=== PATIENT | male | born 1940 | race Asian ===

== ENCOUNTER 2018-06-22 14:27 | Inpatient (IN) | payer OTHER ==
[~2018-06-22] VITALS: Ht 167.6 cm; Wt 60.8 kg
--- NOTE | 2018-06-22 14:33 | NUR ---
PT AMBULATES TO BED 8
[2018-06-22 14:35] VITALS: BP 110/78
--- NOTE | 2018-06-22 14:44 | NUR ---
Patient being evaluated by physician at bedside.
[2018-06-22] MEDS ORDERED: ASPIRIN 325 MG TAB PO ONE (14:45)
[2018-06-22] MEDS ORDERED: ASPIRIN 325 MG TAB ONE (15:05)
--- NOTE | 2018-06-22 15:09 | NUR ---
AAO KINYARWANDA SPEAKING PT BIB FAMILY WITH C/O DIZZINESS X 1 WK; DENIES N/V/D; BP 110/78 HX; DENIES RX; NONE
[2018-06-22 15:30] LABS: BASOPHILS % (AUTO) 0.9 % (0.0-2.0); EOSINOPHILS # (AUTO) 0.2 K/uL (0-0.4); EOSINOPHILS % (AUTO) 4.7 % (0.0-4.0); HEMATOCRIT 41.1 % (36-52); HEMOGLOBIN 13.7 g/dL (12.0-18.0); LYMPHOCYTES # (AUTO) 1.2 K/uL (2.0-11.5); LYMPHOCYTES % (AUTO) 32.9 % (20.5-51.1); MEAN CORPUSCULAR HEMOGLOBIN 33 pg (27-31); MEAN CORPUSCULAR HGB CONC 33 g/dL (33-37); MEAN CORPUSCULAR VOLUME 99.5 fL (80-94); MONOCYTES # (AUTO) 0.4 K/uL (0.8-1.0); MONOCYTES % (AUTO) 10.3 % (1.7-9.3); NEUTROPHILS # (AUTO) 1.9 K/uL (1.8-7.7); NEUTROPHILS % (AUTO) 51.2 % (42.2-75.2); PLATELET COUNT (AUTO) 96 K/uL (140-450); RED BLOOD CELL COUNT(AUTO) 4.13 MIL/uL (4.20-6.10); RED CELL DISTRIBUTION WIDTH 13.4 % (11.6-13.7); WHITE BLOOD COUNT (AUTO) 3.7 K/uL (4.8-10.8)
[2018-06-22 15:43] LABS: ANION GAP 6.9 (8-16); CARBON DIOXIDE 30.2 mmol/L (21-32); CHLORIDE 103 mmol/L (98-107); CREATININE 0.8 mg/dL (0.7-1.3); GLUCOSE 80 mg/dL (74-106); POTASSIUM 4.1 mmol/L (3.5-5.1); SODIUM SERUM 136 mmol/L (136-145); UREA NITROGEN, BLOOD 26 mg/dL (7-18)
[2018-06-22] MEDS ORDERED: NACL 0.9% 1,000 ML IV SCH (15:45)
[2018-06-22 15:49] LABS: ASPARTATE AMINOTRANSFERASE 42 U/L (15-37); TOTAL BILIRUBIN 0.4 mg/dL (0.0-1.0)
[2018-06-22 15:53] LABS: PROTHROMBIN TIME 10.7 secs (10.8-13.4)
[2018-06-22] MEDS ORDERED: VITD1000 PO ×2 (15:55→16:01)
[2018-06-22] MEDS ORDERED: NAPR-54 PO (15:56)
[2018-06-22] MEDS ORDERED: GABA300C PO (15:57)
[2018-06-22] MEDS ORDERED: OMEP20TC12 PO (15:58)
[2018-06-22] MEDS ORDERED: ATROPINE 0.5 MG/5 ML SYR IVP ONE (16:05)
[2018-06-22] MEDS ORDERED: ATROPINE 1 MG/10 ML SYR IVP ONE (16:27)
--- NOTE | 2018-06-22 16:32 | NUR ---
1625 HR 44 BP 121/58 START ATROPINE PUSH END 1629 HR 63 BP 144/74
[2018-06-22] MEDS ORDERED: ACETAMINOPHEN 325 MG TAB PO PRN (16:50)
--- NOTE | 2018-06-22 17:13 | NUR ---
PT TAKEN TO THE FLOOR BY RED PLUMMER AND CHITRA RICHEY
--- NOTE | 2018-06-22 17:20 | NUR ---
PATIENT ADMITTED FROM ER. PATIENT AWAKE, ALERT, ORIENTED AND AMBULATORY. PATIENT ON ROOM AIR. NO S/S OF DISTRESS. DENIES PAIN AT THIS TIME. PATIENT IS LATVIAN SPEAKING ONLY. GRAND DAUGHTER AT BEDSIDE PROVIDED HX. PATIENT PLACED ON TELE MONITORING. BED LOWERED WITH CALL LIGHT WITHIN REACH. WILL CONTINUE TO MONITOR
--- NOTE | 2018-06-22 17:25 | NUR ---
Patient will be admitted to care of . Admited to TELE. Will go to room 108B. Belongings list completed. Report to KYLAH MOON.
[2018-06-22 17:36] VITALS: BP 146/61
[2018-06-22] MEDS ORDERED: INFLUENZA VIRUS VACCINE QUAD 0.5 ML SYR IMVAC PRN (17:40)
[2018-06-22] MEDS ORDERED: PNEUMOCOCCAL VACCINE 23 MCG/0.5 ML VIAL IMVAC SCH (17:40)
--- NOTE | 2018-06-22 17:51 | NUR ---
PATIENT EATING DINNER. NO S/S OF DISTRESS NOTED
--- NOTE | 2018-06-22 18:30 | NUR ---
PATIENT BACK IN THE UNIT. PATIENT ASLEEP BUT AROUSABLE. BP 135/62 HR 84 O2 SAT 99% ON ROOM AIR. 3-WAY ARMANDO CATHETER IN PLACE. CLEAR DRAINAGE NOTED IN THE ARMANDO BAG. BLOOD TRANSFUSION STILL IN PROGRESS. BED LOWERED WITH CALL LIGHT WITHIN REACH. WILL CONTINUE TO MONITOR Addendum: 06/22/18 at 1857 by Tim Jackson RN WRONG PATIENT
--- NOTE | 2018-06-22 18:30 | NUR ---
SPOKE TO THE DR KRISHNAMURTHY AND NOTIFIED HER ABOUT PATIENT'S HR OF 47. PATIENT DENIES ANY DISCOMFORT. PER ADMINISTER ONE MORE DOSE OF 0.5MG ATROPINE IVP AND CONSULT DR HUTCHINS
--- NOTE | 2018-06-22 18:45 | NUR ---
SPOKE WITH DR HUTCHINS AND NOTIFIED HER ABOUT PATIENT'S HEART RATE. PER MECCA SERRATO TO ADMINISTER ATROPINE
[2018-06-22] MEDS ORDERED: ATROPINE 1 MG/10 ML SYR IVP SCH (19:00)
[2018-06-22] MEDS: DEXT 5% / NACL 0.9% 500 ML IV SCH (19:07)
--- NOTE | 2018-06-22 19:20 | NUR ---
RECEIVED REPORT FROM DAY SHIFT NURSE. PT LAYING IN BED NO SIGNS OF DISTRESS NOTED. IV ON LEFT HAND IS DRY INTACT AND PATENT INFUSING D5NS AT 75ML/HR. ALL SAFETY MEASURES IN PLACE. PT A&O X 4. CALL LIGHT WITHIN REACH. SKIN IS INTACT. BED ON LOWEST POSITION. CALL LIGHT WITHIN REACH WILL CONTINUE TO MONITOR.
--- NOTE | 2018-06-22 19:55 | NUR ---
PATIENT REPORT GIVEN AT BEDSIDE. PATIENT ENDORSED IN STABLE CONDITION
[2018-06-22 19:57] VITALS: BP 127/70
[2018-06-22] MEDS: GABAPENTIN 300 MG CAP PO SCH (20:10)
--- NOTE | 2018-06-22 20:10 | NUR ---
DUE MEDICATION GIVEN. PT TOLERATED WELL. NO SIGNS OR SYMPTOMS OD DISTRESS. ALL SAFETY MEASURES IN PLACE WILL CONTINUE TO MONITOR. BED ALARM ON AND ON LOWEST POSITION.
--- NOTE | 2018-06-22 23:53 | NUR ---
PTS HEART RATE IN HIGH 30S WHEN SLEEPING. IS EASILY AROUSABLE NO COMPLAINS OF SOB OR CHEST PAIN. B/P 130/[address] KRISHNAMURTHY MADE AWARE ORDERED EKG STAT AND CARDIAC PANEL.
[2018-06-23] VITALS: BP 130/38
--- NOTE | 2018-06-23 | NUR ---
PTS SLEEPING IN BED BUT EASILY AROUSABLE. PT IN STABLE CONDITION HEART RATE IN THE 40S OTHER MO VITAL SIGNS WITHIN NORMAL LIMITS. PT DENIES CHEST PAIN OR SOB. WILL CONTINUE TO MONITOR.
[2018-06-23 00:42] LABS: CREATINE KINASE MB 1.2 ng/mL (0-3.6)
[2018-06-23] MEDS: DEXT 5% / NACL 0.9% 500 ML IV SCH (01:08)
--- NOTE | 2018-06-23 01:35 | NUR ---
PTS HEART RATE IN HIGH 30S WHILE ASLEEP. NO SIGNS OR SYMPTOMS OF DISTRESS IS EASILY AROUSABLE. NO SOB. DR HUTCHINS NOTIFIED. NO FURTHER ORDERS AT THIS TIME. WILL CONTINUE TO MONITOR.
--- NOTE | 2018-06-23 03:10 | NUR ---
PT IN FALL PRECAUTION. I CONTINUE TO EDUCATE PT ON CALLING FOR ASSISTANCE TO RESTROOM. BED ON LOWEST POSITION AND BED ALARM ON. WILL CONTINUE TO MONITOR.
[2018-06-23 04:00] VITALS: BP 118/56
--- NOTE | 2018-06-23 04:20 | NUR ---
PT SLEEPING BUT EASILY AROUSABLE. NO SIGNS OF DISTRESS NOTED AT THIS TIME. PT DENIES SOB. ALL SAFETY MEASURES IN PLACE. BED ALARM ON AND ON LOWEST POSITION. WILL CONTINUE TO MONITOR
--- NOTE | 2018-06-23 07:15 | NUR ---
RECEIVED PATIENT REPORT IN BED. PATIENT IS AWAKE AND ORIENTED. NO S/S OF DISTRESS. PATIENT ON TELE MONITORING. BED LOWERED WITH CALL LIGHT WITHIN REACH. WILL CONTINUE TO MONITOR
--- NOTE | 2018-06-23 07:20 | NUR ---
ENDORSED PT TO DAY SHIFT NURSE. PT IN STABLE CONDITION. ALL SAFETY MEASURES IN PLACE.
[2018-06-23 07:27] LABS: BASOPHILS % (AUTO) 0.7 % (0.0-2.0); EOSINOPHILS # (AUTO) 0.2 K/uL (0-0.4); EOSINOPHILS % (AUTO) 5.2 % (0.0-4.0); HEMATOCRIT 39.7 % (36-52); HEMOGLOBIN 13.4 g/dL (12.0-18.0); LYMPHOCYTES # (AUTO) 1.2 K/uL (2.0-11.5); LYMPHOCYTES % (AUTO) 31.9 % (20.5-51.1); MEAN CORPUSCULAR HEMOGLOBIN 34 pg (27-31); MEAN CORPUSCULAR HGB CONC 34 g/dL (33-37); MEAN CORPUSCULAR VOLUME 99.1 fL (80-94); MONOCYTES # (AUTO) 0.3 K/uL (0.8-1.0); MONOCYTES % (AUTO) 8.9 % (1.7-9.3); NEUTROPHILS % (AUTO) 53.3 % (42.2-75.2); PLATELET COUNT (AUTO) 95 K/uL (140-450); RED BLOOD CELL COUNT(AUTO) 4.01 MIL/uL (4.20-6.10); RED CELL DISTRIBUTION WIDTH 13.5 % (11.6-13.7); WHITE BLOOD COUNT (AUTO) 3.8 K/uL (4.8-10.8)
[2018-06-23 07:34] LABS: ALBUMIN 2.8 g/dL (3.4-5.0); ANION GAP 8.2 (8-16); ASPARTATE AMINOTRANSFERASE 42 U/L (15-37); CARBON DIOXIDE 28.8 mmol/L (21-32); CHLORIDE 106 mmol/L (98-107); CREATININE 0.8 mg/dL (0.7-1.3); GLUCOSE 82 mg/dL (74-106); SODIUM SERUM 139 mmol/L (136-145); TOTAL BILIRUBIN 0.6 mg/dL (0.0-1.0); UREA NITROGEN, BLOOD 17 mg/dL (7-18)
[2018-06-23 07:45] VITALS: BP 110/56
--- NOTE | 2018-06-23 08:30 | NUR ---
PATIENT SEEN AND EVALUATED BY DR HIRSCH
[2018-06-23] MEDS: DEXT 5% /NACL 0.9% 1,000 ML IV SCH ×2 (08:44→20:20)
[2018-06-23] MEDS: ASPIRIN 81 MG TAB.CHEW PO SCH (08:49)
[2018-06-23] MEDS: GABAPENTIN 300 MG CAP PO SCH ×2 (08:49→20:15)
[2018-06-23] MEDS: ENOXAPARIN 40 MG/0.4 ML SYR SUBQ SCH (08:51)
[2018-06-23 12:00] VITALS: BP 122/55
--- NOTE | 2018-06-23 14:15 | NUR ---
PATIENT SEEN AND EVALUATED BY DR HUTCHINS
[2018-06-23 17:17] VITALS: BP 125/50
--- NOTE | 2018-06-23 18:34 | NUR ---
PATIENT EATING DINNER. NO S/S OF DISTRESS. FAMILY MEMBERS PRESENT AT BEDSIDE
--- NOTE | 2018-06-23 19:29 | NUR ---
PATIENT REPORT GIVEN AT BEDSIDE. PATIENT ENDORSED IN STABLE CONDITION
--- NOTE | 2018-06-23 19:30 | NUR ---
RECEIVED BEDSIDE REPORT. PT IS EATING IN BED WITH FAMILY AT BEDSIDE. PT ON ROOM AIR WITHOUT SIGNS OF SOB. IV ON LEFT FOREARM INFUSING D5NS AT 75ML/HR. REVIEWED PLAN OF CARE WITH PT. ALL SAFETY MEASURES IN PLACE. FALL PRECAUTION IN PLACE. CALL LIGHT WITHIN REACH.
[2018-06-23 20:00] VITALS: BP 131/56
--- NOTE | 2018-06-23 20:15 | NUR ---
DUE MEDICATIONS GIVEN. PT TOLERATED WELL. NO SIGNS OF DISTRESS NOTED. SAFETY MEASURES IN PLACE. CALL LIGHT WITHIN REACH. WILL CONTINUE TO MONITOR.
[2018-06-24] VITALS: BP 113/47
--- NOTE | 2018-06-24 00:05 | NUR ---
PT CONTINUES TO BE BRADYCARDIA. NO SOB. OTHERWISE VITAL SIGNS ARE WITHIN NORMAL LIMITS. SAFETY MEASURES IN PLACE. CALL LIGHT WITHIN REACH. BED ALARM ON. WILL CONTINUE TO MONITOR.
--- NOTE | 2018-06-24 01:30 | NUR ---
PT SLEEPING. NO SIGNS OF DISTRESS NOTED. SAFETY MEASURES IN PLACE.
--- NOTE | 2018-06-24 03:15 | NUR ---
PT SLEEPING. NO SIGNS OF DISTRESS NOTED. SAFETY MEASURES IN PLACE.
[2018-06-24 04:00] VITALS: BP 129/46
--- NOTE | 2018-06-24 04:20 | NUR ---
PT CONTINUES TO BE BRADYCARDIA. NO SOB. DENIES ANY PAIN. OTHERWISE VITAL SIGNS WITHIN NORMAL LIMITS. BED ALARM ON AND ON LOWEST POSITION. WILL CONTINUE TO MONITOR
--- NOTE | 2018-06-24 07:15 | NUR ---
ENDORSED PT TO DAY SHIFT NURSE. PT IN STABLE CONDITION. SAFETY MEASURES IN PLACE.
--- NOTE | 2018-06-24 07:16 | NUR ---
RECEIVED REPORT FROM PM NURSE AT BEDSIDE. PT IS FILIPINO SPEAKING ONLY. PT IS FALL RISK WITH ADMITTING DX OF SYMPTOMATIC BRADYCARDIA. PT VS NOTED, HR 43 . SKIN IS INTACT. AOX4, IS ON FALL PRECAUTION. HAS LFT AC 20G, D5 NS IVF INFUSING AT 75ML/HR. IV SITE INTACT AND PATENT. PLACED CALL LIGHT WITHIN PT REACH. INFORMED TO USE CALL LIGHT FOR ANY HELP. BED ALARM ON, BED AT LOWER POSITION. NO SIGN OF DISTRESS NOTED THIS TIME . WILL CONTINUE TO MONITOR PT.
[2018-06-24 07:48] VITALS: BP 131/36
[2018-06-24 07:49] LABS: BASOPHILS % (AUTO) 0.7 % (0.0-2.0); EOSINOPHILS # (AUTO) 0.2 K/uL (0-0.4); HEMATOCRIT 38.2 % (36-52); HEMOGLOBIN 12.8 g/dL (12.0-18.0); LYMPHOCYTES # (AUTO) 1.4 K/uL (2.0-11.5); MEAN CORPUSCULAR HEMOGLOBIN 33 pg (27-31); MEAN CORPUSCULAR HGB CONC 34 g/dL (33-37); MEAN CORPUSCULAR VOLUME 99.1 fL (80-94); MONOCYTES # (AUTO) 0.4 K/uL (0.8-1.0); MONOCYTES % (AUTO) 9.6 % (1.7-9.3); NEUTROPHILS # (AUTO) 1.7 K/uL (1.8-7.7); NEUTROPHILS % (AUTO) 46.7 % (42.2-75.2); PLATELET COUNT (AUTO) 89 K/uL (140-450); RED BLOOD CELL COUNT(AUTO) 3.85 MIL/uL (4.20-6.10); RED CELL DISTRIBUTION WIDTH 13.2 % (11.6-13.7); WHITE BLOOD COUNT (AUTO) 3.7 K/uL (4.8-10.8)
[2018-06-24 08:34] LABS: CARBON DIOXIDE 29.8 mmol/L (21-32); CHLORIDE 107 mmol/L (98-107); CREATININE 0.7 mg/dL (0.7-1.3); GLUCOSE 85 mg/dL (74-106); POTASSIUM 3.8 mmol/L (3.5-5.1); SODIUM SERUM 138 mmol/L (136-145); UREA NITROGEN, BLOOD 19 mg/dL (7-18)
--- NOTE | 2018-06-24 08:38 | NUR ---
PATIENT HAS BEEN SCREENED AND CATEGORIZED MODERATE NUTRITION RISK. PATIENT WILL BE SEEN WITHIN 3-5 DAYS OF ADMISSION. 06/25/18 06/27/[address]
[2018-06-24] MEDS: ENOXAPARIN 40 MG/0.4 ML SYR SUBQ SCH (09:00)
[2018-06-24] MEDS: GABAPENTIN 300 MG CAP PO SCH (09:02)
[2018-06-24] MEDS: ASPIRIN 81 MG TAB.CHEW PO SCH (09:02)
--- NOTE | 2018-06-24 09:06 | NUR ---
ADMINISTERED MEDS TO PT . TOLERATED WELL. LEVONOX NOT ADMINISTERED PLATELET AT LOWER END ,[id number]. WILL CONTINUE TO MONITOR PT. [id number] PT ON USING CALL LIGHT. PLACED CALL LIGHT WITHINN PT REACH. PT LYING ON HIS BED. NO SIGN OF DISTRESS NOTED. WILL CONTINUE TO MONITOR PT.
[2018-06-24] MEDS: DEXT 5% /NACL 0.9% 1,000 ML IV SCH (09:14)
[2018-06-24] MEDS ORDERED: CHLORHEXADINE GLUC 2% CLOTH TP SCH (10:20)
[2018-06-24] MEDS ORDERED: MUPIROCIN 2% OINT 22 GM TUBE TP SCH (10:20)
--- NOTE | 2018-06-24 10:20 | NUR ---
CALLED DR. HIRSCH TO REPORT PT MRSA NARES CULTURE CAME POSITIVE . ORDERED TO START MRSA PROTOCOL. PT ON CONTACT ISOLATION. POSTED SIGN ON PT ROOM. FAMILY AT BEDSIDE. EDUCATED ABOUT MRSA CONTACT PROTOCOL. VERBALIZED UNDERSTANDING. SHOWED THEM GOWN . INFORMED THAT NEEDS TO WEAR GOWN WHILE VISITING PTS ROOM . NO SIGN OF DISTRESS NOTED WILL CONTINUE TO MONITOR PT.
--- NOTE | 2018-06-24 10:45 | NUR ---
SPOKE TO THE DAUGHTER KEYSHA REGARDING TRANSFER OF PATIENT TO [facility].
[2018-06-24] MEDS ORDERED: MUPIROCIN CA NASAL 2% 1GM TUBE NS SCH (11:00)
--- NOTE | 2018-06-24 11:00 | NUR ---
ADMISSION CHART REVIEW DONE. FAXED INITIAL REVIEW TO [facility] [phone] PHONE ELSA [phone] ALSO FAXED ORDER FOR TRANSFER TO [facility] FOR PACEMAKER. RECEIVED ORDER FOR PATIENT TO GO TO [facility] FOR PACEMAKER INSERTION. I CALLED KRISTEN AND [facility] IN BED CONTROL AND SHE SAID TO HAVE DR. CHAUDHARY CALL HER FOR A BED. I CALLED DR. HIRSCH AND AND HE SAID HE WOULD CALL BED CONTROL. I CALLED ELSA FROM [facility]. THE AUTH FOR TRANSPORT IS [id number]. THE AUTH FOR [facility] IS [id number]. I CALLED KRISTEN AND GAVE HER THE AUTH NUMBER. SHE SAID THE PATIENT CAN GO TO ROOM 351A UNDER DR. HIRSCH. THE PHONE FOR REPORT IS [phone]. I CALLED NOHELIA MOONBRAKE RIDER NURSE AND INFORMED HER. I CALLED YAMIL AND SPOKE WITH MARIELLA AND SET UP [facility] TRANSPORT FOR 12NOON. I INFORMED NOHELIA MOONBRAKE RIDER NURSE.
--- NOTE | 2018-06-24 12:15 | NUR ---
PT TRANSFERRED TO [facility] FRO HIGHER LEVEL OF CARE. PT WENT WITH [facility]. PT STABEL AT TIME OF DC. DC PACKET GIVEN WITH PT. FAMILY MEMBER AT BEDSIDE , INFORMED HER THAT PT WILL BE TRANSFERRED TO [facility] FOR HIGHER LEVEL OF CARE, REPORT GIVE TO GURU FROM [facility] . GAVE CALL BACK NUMBER IF HAS ANY QUESTION. PT WAS GIVEN FLU SHOT AND PNA VACCINE. PT WENT WITH [facility] VIA AMBULANCE. PT STABLE AT TIME OF DISCHARGE, WENT WITH IV ACCESS, NURSE MARISOL GARVEY AWARE. GAVE HER PTS GRANDDAUGHTER NUMBER , IF WANTED TO CONTACT FAMILY MEMBER.
== END 2018-06-24 12:15 | disposition short-term general hospital (02) | DRG 243 ==
LOC: MED 14:27 → MTU 16:52
PROVIDERS: ADMIT Internal Medicine; ATTEND Internal Medicine
DX: K21.9 Gastro-esophageal reflux disease without esophagitis (principal); R00.1 Bradycardia, unspecified; E44.1 Mild protein-calorie malnutrition; E78.5 Hyperlipidemia, unspecified; R07.89 Other chest pain; F41.9 Anxiety disorder, unspecified; K25.9 Gastric ulcer, unspecified as acute or chronic, without hemorrhage or perforation; N40.0 Benign prostatic hyperplasia without lower urinary tract symptoms; Z79.1 Long term (current) use of non-steroidal anti-inflammatories (NSAID); Z79.899 Other long term (current) drug therapy; Z87.891 Personal history of nicotine dependence; Z80.9 Family history of malignant neoplasm, unspecified; Z87.11 Personal history of peptic ulcer disease
CPT/HCPCS: 36415; 71045; 80048; 80053; 82550; 82553; 83735; 83880; 84443; 84484; 85025; 85610; 85730; 87081; 90658; 90732; 93005; 96361; 96374; 99285; J0461; J1650; J7042

== ENCOUNTER 2018-09-18 08:30 | Emergency (ER) | payer OTHER ==
[~2018-09-18] VITALS: Ht 165.1 cm; Wt 59.6 kg
[~2018-09-18 08:30] MED LIST: GABA300C PO; NAPR-54 PO; OMEP20TC12 PO; VITD1000 PO
[2018-09-18 08:39] VITALS: BP 119/79
[2018-09-18 09:34] LABS: EOSINOPHILS # (AUTO) 0.1 K/uL (0-0.4); EOSINOPHILS % (AUTO) 1.7 % (0.0-4.0); HEMATOCRIT 45.9 % (36-52); HEMOGLOBIN 14.9 g/dL (12.0-18.0); LYMPHOCYTES # (AUTO) 1.1 K/uL (2.0-11.5); LYMPHOCYTES % (AUTO) 25.2 % (20.5-51.1); MEAN CORPUSCULAR HEMOGLOBIN 32 pg (27-31); MEAN CORPUSCULAR HGB CONC 33 g/dL (33-37); MEAN CORPUSCULAR VOLUME 98.8 fL (80-94); MONOCYTES # (AUTO) 0.3 K/uL (0.8-1.0); MONOCYTES % (AUTO) 7.9 % (1.7-9.3); NEUTROPHILS # (AUTO) 2.8 K/uL (1.8-7.7); NEUTROPHILS % (AUTO) 64.2 % (42.2-75.2); PLATELET COUNT (AUTO) 123 K/uL (140-450); RED BLOOD CELL COUNT(AUTO) 4.64 MIL/uL (4.20-6.10); RED CELL DISTRIBUTION WIDTH 13.7 % (11.6-13.7); WHITE BLOOD COUNT (AUTO) 4.4 K/uL (4.8-10.8)
[2018-09-18 09:49] LABS: SODIUM SERUM 134 mmol/L (136-145)
[2018-09-18 09:50] LABS: CARBON DIOXIDE 27.2 mmol/L (21-32); CHLORIDE 97 mmol/L (98-107); CREATININE 0.9 mg/dL (0.7-1.3); GLUCOSE 100 mg/dL (74-106); POTASSIUM 4.2 mmol/L (3.5-5.1); UREA NITROGEN, BLOOD 22 mg/dL (7-18)
[2018-09-18 10:00] LABS: TOTAL BILIRUBIN 0.7 mg/dL (0.0-1.0)
[2018-09-18 10:01] LABS: ALBUMIN 3.2 g/dL (3.4-5.0); ASPARTATE AMINOTRANSFERASE 84 U/L (15-37)
[2018-09-18 10:16] LABS: APPEARANCE,URINE CLEAR (CLEAR)
[2018-09-18 10:17] LABS: BILIRUBIN,URINE 1+ (NEGATIVE); BLOOD, URINE TRACE (NEGATIVE); COLOR,URINE YELLOW (YELLOW); LEUKOCYTE ESTERASE ,URINE NEGATIVE (NEGATIVE); NITRITE, URINE NEGATIVE (NEGATIVE); PH,URINE 5.5 (5.0-9.0); UGLUCOSE NEGATIVE (NEGATIVE)
[2018-09-18 10:19] LABS: RBC,URINE 0-5 (RARE) /HPF (0-5); WBC,URINE 0-5 (RARE) /HPF (0-5)
[2018-09-18 10:50] VITALS: BP 123/73
== END 2018-09-18 10:50 | disposition home or self-care (01) ==
LOC: MED 08:30
DX: B34.9 Viral infection, unspecified (principal); Z79.899 Other long term (current) drug therapy
CPT/HCPCS: 36415; 71045; 80053; 81001; 85025; 87804; 99284; Q0092

== ENCOUNTER 2018-11-03 09:33 | Inpatient (IN) | payer OTHER ==
[~2018-11-03] VITALS: Ht 165.1 cm; Wt 62.1 kg
[2018-11-03 09:35] VITALS: BP 157/82
--- NOTE | 2018-11-03 09:43 | NUR ---
Patient ambulated with assistance to bed 5.
--- NOTE | 2018-11-03 10:07 | NUR ---
ASSUMED PATIENT CARE, NURSING ASSESSMENT COMPLETED. SEEN AND EVALUATED BY FRANCINE AMOS COMPLETED.
[2018-11-03] MEDS ORDERED: NACL 0.9% 1,000 ML IV SCH (10:27)
[2018-11-03] MEDS ORDERED: NACL 0.9% 1,000 ML IV ONE (10:27)
[2018-11-03] MEDS ORDERED: LACTULOSE 20 GM/30 ML UDC PO ONE (10:30)
[2018-11-03] MEDS ORDERED: METOCLOPRAMIDE 10 MG/2 ML INJ VIAL IVP ONE (10:30)
[2018-11-03] MEDS ORDERED: ONDANSETRON 4 MG/2 ML VIAL IVP ONE (10:30)
[2018-11-03 11:25] LABS: BASOPHILS % (AUTO) 0.6 % (0.0-2.0); EOSINOPHILS # (AUTO) 0.2 K/uL (0-0.4); EOSINOPHILS % (AUTO) 3.7 % (0.0-4.0); HEMATOCRIT 48.1 % (36-52); HEMOGLOBIN 15.5 g/dL (12.0-18.0); LYMPHOCYTES # (AUTO) 1.1 K/uL (2.0-11.5); LYMPHOCYTES % (AUTO) 23.6 % (20.5-51.1); MEAN CORPUSCULAR HEMOGLOBIN 32 pg (27-31); MEAN CORPUSCULAR HGB CONC 32 g/dL (33-37); MEAN CORPUSCULAR VOLUME 99.4 fL (80-94); MONOCYTES # (AUTO) 0.4 K/uL (0.8-1.0); NEUTROPHILS # (AUTO) 2.9 K/uL (1.8-7.7); NEUTROPHILS % (AUTO) 63.1 % (42.2-75.2); PLATELET COUNT (AUTO) 146 K/uL (140-450); RED BLOOD CELL COUNT(AUTO) 4.84 MIL/uL (4.20-6.10); RED CELL DISTRIBUTION WIDTH 15.7 % (11.6-13.7); WHITE BLOOD COUNT (AUTO) 4.5 K/uL (4.8-10.8)
[2018-11-03 11:47] LABS: ANION GAP 6.5 (8-16); CARBON DIOXIDE 29.5 mmol/L (21-32); CHLORIDE 100 mmol/L (98-107); CREATININE 0.8 mg/dL (0.7-1.3); GLUCOSE 67 mg/dL (74-106); SODIUM SERUM 132 mmol/L (136-145); UREA NITROGEN, BLOOD 20 mg/dL (7-18)
[2018-11-03 11:50] LABS: AMYLASE 82 U/L (25-115); ASPARTATE AMINOTRANSFERASE 95 U/L (15-37); LIPASE 160 U/L (73-393); TOTAL BILIRUBIN 1.2 mg/dL (0.0-1.0)
[2018-11-03] MEDS ORDERED: LEVOFLOXACIN 500 MG TAB PO ONE (13:05)
[2018-11-03 13:18] LABS: APPEARANCE,URINE CLEAR (CLEAR); BILIRUBIN,URINE NEGATIVE (NEGATIVE); BLOOD, URINE NEGATIVE (NEGATIVE); COLOR,URINE YELLOW (YELLOW); LEUKOCYTE ESTERASE ,URINE NEGATIVE (NEGATIVE); NITRITE, URINE NEGATIVE (NEGATIVE); UGLUCOSE NEGATIVE (NEGATIVE)
[2018-11-03] MEDS ORDERED: ONDANSETRON 4 MG/2 ML VIAL IVP PRN (14:30)
[2018-11-03] MEDS ORDERED: MORPHINE SULFATE 4 MG/ML SYR IVP PRN (14:30)
[2018-11-03] MEDS ORDERED: ACETAMINOPHEN 325 MG TAB PO PRN (14:30)
[2018-11-03 15:30] VITALS: BP 139/71
--- NOTE | 2018-11-03 15:30 | NUR ---
RECEIVED PT FROM RD NURSE. PT IS AWAKE AND ALERT, ABLE TO AMBULATE STEADILY, ON ROOM AIR, NO S/S OF ANY ACUTE DISTRESS. PT IS LAO SPEAKING ONLY, BUT HIS GRANDDAUGHTER IS PRESENT AT BEDSIDE, WHO IS AZERI SPEAKING AND ABLE TO TRANSLATE FOR THE PT. PT'S SKIN IS INTACT. PT HAS AN IV IN HIS R AC, 18 GAUGE, PATENT AND INTACT. CALL LIGHT GIVEN WITHIN REACH. WILL CONTINUE TO MONITOR.
--- NOTE | 2018-11-03 15:35 | NUR ---
DISPO AND MEDICAL DECISION MAKING INPATIENT ADMISSION FOR FURTHER MANAGEMENT AND CARE. PATIENT CARE REPORT GIVEN TO JACOB, CONTINUITY OF CARE ENDORSED. PATIENT AND FAMILY UPDATED ACCORDINGLY.
--- NOTE | 2018-11-03 16:40 | NUR ---
OBTAINED CONSENT FROM PT FOR ABD CT WITH CONTRAST. PT'S GRANDDAUGHTER WAS PRESENT AND WAS ABLE TO TRANSLATE FOR THE PATIENT.
--- NOTE | 2018-11-03 17:20 | NUR ---
PAGED DR HIRSCH REGARDING HIS SIGNATURE FOR PT'S CONSENT FOR ABD CT W/ CONSTRAST. DR HIRSCH SAID HE WILL SIGN IT TOMORROW WHEN HE COMES IN, AND TO DO THE CT SCAN TOMORROW.
--- NOTE | 2018-11-03 17:55 | NUR ---
PAGED WHETHER PT SHOULD BE GETTING ANY IV FLUIDS. DR CELIS WAS EVP MANAGING DIRECTOR, SAID TO ADMIN D5 1/2 NS 75 ML/HR, SINCE PT IS NPO FOR CT W/ CONTRAST TOMORROW.
[2018-11-03] MEDS: DEXT 5% / NACL 0.45% 1,000 ML IV SCH (18:48)
--- NOTE | 2018-11-03 19:20 | NUR ---
PT ENDORSED TO TROUBLE LOCATER IN STABLE CONDITION.
--- NOTE | 2018-11-03 19:22 | NUR ---
RECEIVED ENDORSEMENT FROM AM SHIFT RN. PT IS A/Ox4, ABLE TO VERBALIZE NEEDS. [place] SPEAKING ONLY, FAMILY AT BEDSIDE, GRANDDAUGHTER LEOPOLDO TO TRANSLATE BURKINAN TO CYMRO. INTRODUCED SELF, UPDATED PATIENT BOARD. ABLE TO AMBULATE STEADILY, ON ROOM AIR, NO S/S OF ANY ACUTE DISTRESS. PT'S SKIN IS INTACT. PT HAS AN IV IN HIS R AC, 18 GAUGE, PATENT AND INTACT. BED IN THE LOWEST POSITION, CALL LIGHT GIVEN WITHIN REACH. WILL CONTINUE TO MONITOR.
--- NOTE | 2018-11-03 19:30 | NUR ---
SEQUENTIAL DEVICE NOT ORDERED FOR THE PATIENT. PATIENT IS AMBULATORY.
[2018-11-03] MEDS: HYDROcodone/APAP 5/325 MG 1 TAB TAB PO PRN (19:50)
[2018-11-03 20:00] VITALS: BP 148/76
--- NOTE | 2018-11-03 22:05 | NUR ---
FREQUENT CHECKS MADE. NO SOB OR DISTRESS NOTED.
[2018-11-04] VITALS: BP 148/76
--- NOTE | 2018-11-04 00:56 | NUR ---
VITALS TAKEN. PATIENT ASLEEP, VISIBLE CHEST RISE AND FALL NOTED.
[2018-11-04] MEDS: HYDROcodone/APAP 5/325 MG 1 TAB TAB PO PRN ×3 (01:18→16:07)
--- NOTE | 2018-11-04 03:20 | NUR ---
ROUNDS DONE, VISIBLE CHEST RISE AND FALL NOTED.
--- NOTE | 2018-11-04 07:03 | NUR ---
RECEIVED PATIENT REPORT AT BEDSIDE. PATIENT IS AWAKE, ALERT AND ORIENTED. NO S/S OF DISTRESS AT THIS TIME. PATIENT IS NPO AT THIS TIME. BED LOWERED WITH CALL LIGHT WITHIN REACH. WILL CONTINUE TO MONITOR
--- NOTE | 2018-11-04 07:03 | NUR ---
ENDORSED PATIENT TO AM SHIFT RN. PATIENT IN STABLE CONDITION.
[2018-11-04] MEDS: DEXT 5% / NACL 0.45% 1,000 ML IV SCH ×2 (07:20→20:45)
[2018-11-04 07:51] LABS: BASOPHILS % (AUTO) 0.7 % (0.0-2.0); EOSINOPHILS # (AUTO) 0.1 K/uL (0-0.4); EOSINOPHILS % (AUTO) 3.3 % (0.0-4.0); HEMOGLOBIN 15.1 g/dL (12.0-18.0); LYMPHOCYTES # (AUTO) 1.1 K/uL (2.0-11.5); LYMPHOCYTES % (AUTO) 25.6 % (20.5-51.1); MEAN CORPUSCULAR HEMOGLOBIN 33 pg (27-31); MEAN CORPUSCULAR HGB CONC 33 g/dL (33-37); MEAN CORPUSCULAR VOLUME 99.4 fL (80-94); MONOCYTES # (AUTO) 0.5 K/uL (0.8-1.0); MONOCYTES % (AUTO) 10.5 % (1.7-9.3); NEUTROPHILS # (AUTO) 2.6 K/uL (1.8-7.7); NEUTROPHILS % (AUTO) 59.9 % (42.2-75.2); PLATELET COUNT (AUTO) 138 K/uL (140-450); RED BLOOD CELL COUNT(AUTO) 4.63 MIL/uL (4.20-6.10); RED CELL DISTRIBUTION WIDTH 15.5 % (11.6-13.7); WHITE BLOOD COUNT (AUTO) 4.4 K/uL (4.8-10.8)
[2018-11-04 08:00] VITALS: BP 134/74
[2018-11-04 08:15] LABS: ALBUMIN 2.9 g/dL (3.4-5.0); ANION GAP 4.8 (8-16); ASPARTATE AMINOTRANSFERASE 94 U/L (15-37); CARBON DIOXIDE 29.1 mmol/L (21-32); CHLORIDE 102 mmol/L (98-107); CREATININE 0.8 mg/dL (0.7-1.3); GLUCOSE 88 mg/dL (74-106); MAGNESIUM 1.7 mg/dL (1.8-2.4); POTASSIUM 3.9 mmol/L (3.5-5.1); SODIUM SERUM 132 mmol/L (136-145); TOTAL BILIRUBIN 1.4 mg/dL (0.0-1.0); UREA NITROGEN, BLOOD 20 mg/dL (7-18)
--- NOTE | 2018-11-04 08:30 | NUR ---
PATIENT HAS BEEN SCREENED AND CATEGORIZED MODERATE NUTRITION RISK. PATIENT WILL BE SEEN WITHIN 3-5 DAYS OF ADMISSION. 11/06/18[address]
--- NOTE | 2018-11-04 10:56 | NUR ---
PT MEDICATED FOR PAIN PRN. DAUGHTER AT BEDSIDE
[2018-11-04 16:05] VITALS: BP 128/70
--- NOTE | 2018-11-04 16:38 | NUR ---
PT EVALUATED BY DR HERNANDEZ
--- NOTE | 2018-11-04 19:09 | NUR ---
PT REPORT GIVEN AT BEDSIDE. PATIENT ENDORSED IN STABLE CONDITION
--- NOTE | 2018-11-04 19:10 | NUR ---
RECEIVED ENDORSEMENT FROM AM SHIFT RN. PT IS A/Ox4, ABLE TO VERBALIZE NEEDS. JAPANESE SPEAKING ONLY, FAMILY AT BEDSIDE, DAUGHTER AND SON ABLE TO TRANSLATE GERMAN TO JAPANESE. INTRODUCED SELF, UPDATED PATIENT BOARD. ABLE TO AMBULATE STEADILY, ON ROOM AIR, NO S/S OF ANY ACUTE DISTRESS. PT'S SKIN IS INTACT. PT HAS AN IV IN HIS R AC, 18 GAUGE, PATENT AND INTACT. BED IN THE LOWEST POSITION, CALL LIGHT GIVEN WITHIN REACH. WILL CONTINUE TO MONITOR.
--- NOTE | 2018-11-04 23:00 | NUR ---
PATIENT SWITCHED TO ROOM 114 DUE TO HX OF MRSA NARES.
--- NOTE | 2018-11-04 23:26 | NUR ---
PATIENT C/O 8/10 LEFT ABDOMINAL PAIN. ADMINISTERED MORPHINE ORDERED PER PAIN SCALE. WILL CONTINUE TO MONITOR.
[2018-11-05] VITALS: BP 134/68
--- NOTE | 2018-11-05 00:05 | NUR ---
VITALS TAKEN. NO SOB OR DISTRESS NOTED.
--- NOTE | 2018-11-05 02:10 | NUR ---
FREQUENT CHECKS MADE. NO SOB OR DISTRESS NOTED.
--- NOTE | 2018-11-05 05:20 | NUR ---
PATIENT ASLEEP, EYES CLOSED, VISIBLE CHEST RISE AND FALL NOTED.
--- NOTE | 2018-11-05 07:15 | NUR ---
ENDORSED PATIENT TO AM SHIFT RN. PATIENT STABLE.
--- NOTE | 2018-11-05 07:16 | NUR ---
RECEIVED BEDSIDE REPORT FROM NET SQL DEVELOPER NURSE. PATIENT IS AWAKE, ALERT AND ORIENTEDX4. PERSIAN SPEAKER. NO SIGNS OF DISTRESS ON RA. SKIN IS INTACT. PATIENT IS AMBULATORY. R AC 18G INFUSING D5 1/2NS AT 75. CLEAN, DRY AND INTACT. PATIENT IS CONTINENT. PATIENT IS NPO FOR LIVER BIOPSY TODAY. BED IN LOW POSITION. CALL LIGHT WITHIN REACH. WILL CONTINUE TO MONITOR THE PATIENT.
[2018-11-05 07:52] LABS: BASOPHILS % (AUTO) 0.5 % (0.0-2.0); EOSINOPHILS # (AUTO) 0.1 K/uL (0-0.4); EOSINOPHILS % (AUTO) 2.5 % (0.0-4.0); HEMATOCRIT 49.5 % (36-52); HEMOGLOBIN 15.9 g/dL (12.0-18.0); LYMPHOCYTES % (AUTO) 19.9 % (20.5-51.1); MEAN CORPUSCULAR HEMOGLOBIN 32 pg (27-31); MEAN CORPUSCULAR HGB CONC 32 g/dL (33-37); MEAN CORPUSCULAR VOLUME 100.2 fL (80-94); MONOCYTES # (AUTO) 0.5 K/uL (0.8-1.0); MONOCYTES % (AUTO) 9.5 % (1.7-9.3); NEUTROPHILS # (AUTO) 3.5 K/uL (1.8-7.7); NEUTROPHILS % (AUTO) 67.6 % (42.2-75.2); PLATELET COUNT (AUTO) 142 K/uL (140-450); RED BLOOD CELL COUNT(AUTO) 4.94 MIL/uL (4.20-6.10); RED CELL DISTRIBUTION WIDTH 15.3 % (11.6-13.7); WHITE BLOOD COUNT (AUTO) 5.2 K/uL (4.8-10.8)
[2018-11-05 08:00] VITALS: BP 129/70
--- NOTE | 2018-11-05 09:10 | NUR ---
USED [employer] TO GET LEATHER BELT LOOP CUTTER TO TRANSLATE FRENCH FOR LIVER BX CONSENT. PATIENT VERBALIZED UNDERSTANDING AND SIGNED CONSENT. DAVID, LEATHER BELT LOOP CUTTER #[id number]
[2018-11-05 09:16] LABS: ALBUMIN 3.3 g/dL (3.4-5.0); ANION GAP 8.6 (8-16); ASPARTATE AMINOTRANSFERASE 114 U/L (15-37); CARBON DIOXIDE 29.2 mmol/L (21-32); CHLORIDE 97 mmol/L (98-107); CREATININE 0.8 mg/dL (0.7-1.3); GLUCOSE 88 mg/dL (74-106); POTASSIUM 3.8 mmol/L (3.5-5.1); SODIUM SERUM 131 mmol/L (136-145); TOTAL BILIRUBIN 1.7 mg/dL (0.0-1.0); UREA NITROGEN, BLOOD 15 mg/dL (7-18)
[2018-11-05] MEDS ORDERED: LIDOCAINE 1% 500 MG/50 ML VIAL INJ SCH (10:48)
--- NOTE | 2018-11-05 11:00 | NUR ---
PATIENT LEFT TO CT TO GET LIVER BX DONE.
--- NOTE | 2018-11-05 11:30 | NUR ---
PATIENT BACK FROM CT SCAN AND LIVER BX. BANDAGE IS CLEAN, DRY AND INTACT. PATIENT EDUCATED TO LAY ON ABDOMEN FOR AN HOUR. IF TOLERATED
--- NOTE | 2018-11-05 12:45 | NUR ---
PATIENT IS HUNGRY WILL ORDER HIM FOOD. PATIENT WANTS TO BE TURNED BACK TO FACE FORWARD. PATIENT OK TO TURN BACK. DRESSING IS CLEAN, DRY AND INTACT
[2018-11-05 13:25] LABS: PROTHROMBIN TIME 11.3 secs (10.8-13.4)
--- NOTE | 2018-11-05 14:00 | NUR ---
PATIENT IN NO SIGNS OF DISTRESS. WILL CONTINUE TO MONITOR THE PATIENT
[2018-11-05 15:07] LABS: HEPATITIS B SURFACE ANTIBODY Non Reactive (.)
[2018-11-05] MEDS ORDERED: MAGNESIUM CITRATE 300 ML BTL PO SCH (15:30)
[2018-11-05] MEDS ORDERED: BOWEL EVACUANT DRINK 4,000 ML PDS PO SCH (15:30)
[2018-11-05 16:00] VITALS: BP 107/74
--- NOTE | 2018-11-05 16:00 | NUR ---
PATIENT SITTING IN BED. NO SIGNS OF DISTRESS. WILL CONTINUE TO MONITOR THE PATIENT
[2018-11-05] MEDS: SENNA 8.6 MG TAB PO SCH (17:09)
--- NOTE | 2018-11-05 17:13 | NUR ---
ADMINISTERED MEDS. PATIENT TOLERATING WELL. PATIENT VERBALIZED UNDERSTANDING FOR COLONOSCOPY PROCEDURE TOMORROW USING [employer]. BOILER ATTENDANT NAME SHONDA [phone] USING THE LANGUAGE ROMANIAN.
--- NOTE | 2018-11-05 19:05 | NUR ---
GAVE BEDSIDE REPORT TO FOURTH HAND NURSE. PATIENT ENDORSED IN STABLE CONDITION
--- NOTE | 2018-11-05 19:07 | NUR ---
RECEIVED ENDORSEMENT FROM AM SHIFT RN. PT IS A/Ox4, ABLE TO VERBALIZE NEEDS. [place] SPEAKING ONLY, GRAND DAUGHTER ABLE TO TRANSLATE DOMINICAN TO [place]. INTRODUCED SELF, UPDATED PATIENT BOARD. ABLE TO AMBULATE STEADILY, ON ROOM AIR, NO SOB OR DISTRESS NOTED. SKIN IS INTACT. PT HAS AN IV IN HIS R AC, 18 GAUGE, PATENT AND INTACT. BED IN THE LOWEST POSITION, CALL LIGHT GIVEN WITHIN REACH. WILL CONTINUE TO MONITOR.
--- NOTE | 2018-11-05 22:45 | NUR ---
CALLED DR. HOWARD ABOUT IVF SINCE PATIENT WILL BE NPO AFTER MIDNIGHT. LEFT A MESSAGE.
--- NOTE | 2018-11-05 22:53 | NUR ---
RECEIVED A CALL FROM DR. DIAZ REGARDING IVF FOR PATIENT; RESPONDED WITH ORDER OF NS 1000mL TO RUN AT 75mL/HR. Addendum: 11/06/18 at 0014 by Александр Rosales RN ORDER CARRIED OUT.
[2018-11-05] MEDS: NACL 0.9% 1,000 ML IV SCH (23:30)
[2018-11-05] MEDS: HYDROcodone/APAP 5/325 MG 1 TAB TAB PO PRN (23:33)
--- NOTE | 2018-11-05 23:33 | NUR ---
PATIENT VERBALIZED 6/10 ABD. PAIN, GRAND DAUGHTER AT BEDSIDE AND ABLE TO TRANSLATE. MEDICATED PER PAIN SCALE. WILL CONTINUE TO MONITOR.
[2018-11-06] VITALS: BP 141/78
--- NOTE | 2018-11-06 00:13 | NUR ---
ROUNDS DONE, VITALS TAKEN. CHECKED BM; YELLOW IN COLOR, CLEAR.
--- NOTE | 2018-11-06 03:44 | NUR ---
PATIENT ASLEEP, VISIBLE CHEST RISE AND FALL NOTED.
--- NOTE | 2018-11-06 07:12 | NUR ---
ENDORSED PATIENT TO AM SHIFT RN. PATIENT IN STABLE CONDITION.
--- NOTE | 2018-11-06 07:15 | NUR ---
RECEIVED BEDSIDE REPORT FROM PM SHIFT RN. PT IS A/Ox4. ABLE TO VERBALIZE NEEDS AND OBEY COMMANDS. SKIN INTACT. AMBULATORY WITHOUT ASSIST. NO C/O PAIN AT THIS TIME. PER PEDIATRIC NURSE RN, PATIENT HAS FINISHED BOWEL PREP AND STOOL IS CLEAR. WILL GO FOR COLONOSCOPY TODAY. ALL SAFETY PRECAUTIONS IN PLACE, WILL CONTINUE TO MONITOR.
[2018-11-06 07:33] LABS: BASOPHILS % (AUTO) 0.7 % (0.0-2.0); EOSINOPHILS # (AUTO) 0.1 K/uL (0-0.4); EOSINOPHILS % (AUTO) 2.1 % (0.0-4.0); HEMATOCRIT 47.9 % (36-52); HEMOGLOBIN 15.9 g/dL (12.0-18.0); LYMPHOCYTES # (AUTO) 0.9 K/uL (2.0-11.5); LYMPHOCYTES % (AUTO) 19.3 % (20.5-51.1); MEAN CORPUSCULAR HEMOGLOBIN 33 pg (27-31); MEAN CORPUSCULAR HGB CONC 33 g/dL (33-37); MEAN CORPUSCULAR VOLUME 98.7 fL (80-94); MONOCYTES # (AUTO) 0.5 K/uL (0.8-1.0); MONOCYTES % (AUTO) 10.1 % (1.7-9.3); NEUTROPHILS # (AUTO) 3.1 K/uL (1.8-7.7); NEUTROPHILS % (AUTO) 67.8 % (42.2-75.2); PLATELET COUNT (AUTO) 142 K/uL (140-450); RED BLOOD CELL COUNT(AUTO) 4.85 MIL/uL (4.20-6.10); RED CELL DISTRIBUTION WIDTH 15.3 % (11.6-13.7); WHITE BLOOD COUNT (AUTO) 4.6 K/uL (4.8-10.8)
[2018-11-06 08:00] VITALS: BP 118/60
[2018-11-06 08:38] LABS: ANION GAP 16.1 (8-16); ASPARTATE AMINOTRANSFERASE 102 U/L (15-37); CARBON DIOXIDE 22.2 mmol/L (21-32); CHLORIDE 100 mmol/L (98-107); CREATININE 0.7 mg/dL (0.7-1.3); GLUCOSE 74 mg/dL (74-106); POTASSIUM 4.3 mmol/L (3.5-5.1); SODIUM SERUM 134 mmol/L (136-145); TOTAL BILIRUBIN 1.7 mg/dL (0.0-1.0); UREA NITROGEN, BLOOD 16 mg/dL (7-18)
[2018-11-06] MEDS ORDERED: PANTOPRAZOLE 40 MG TABEC PO SCH (09:00)
[2018-11-06] MEDS: SENNA 8.6 MG TAB PO SCH ×2 (09:09→13:00)
[2018-11-06] MEDS ORDERED: fentaNYL 0.05 MG/ML VIAL ONE (10:47)
[2018-11-06] MEDS ORDERED: LIDOCAINE 2% 100 MG/5 ML UJET TP ONE (10:48)
[2018-11-06] MEDS ORDERED: MIDAZOLAM 2 MG/2 ML VIAL ONE ×2 (10:48)
--- NOTE | 2018-11-06 11:20 | NUR ---
PATIENT WENT FOR COLONOSCOPY.
--- NOTE | 2018-11-06 12:00 | NUR ---
RECEIVED PATIENT BACK FROM COLONOSCOPY. IN STABLE CONDITION. WILL CONTINUE TO MONITOR. Addendum: 11/06/18 at 1447 by Andria Felipe Meng, RN 94%RA, 95/55, MAP 74, HR 62, RR19. NO C/O PAIN OR DISCOMFORT.
[2018-11-06] MEDS: NACL 0.9% 1,000 ML IV SCH (12:30)
[2018-11-06] MEDS ORDERED: ACET-9525 PO (13:35)
[2018-11-06] MEDS ORDERED: SENN-74 PO (13:35)
--- NOTE | 2018-11-06 14:00 | NUR ---
DISCHARGE PAPERWORK, INCLUDING INSTRUCTIONS TO F/U WITH PCP WITHIN ONE WEEK AND CONTACT INFO FOR DR. HIRSCH FOR BIOPSY RESULTS, GIVEN TO PATIENT. PATIENT IS DIVEHI SPEAKING BUT PREFERS FAMILY MEMBER AT BEDSIDE TO TRANSLATE. NEW PRESCRIPTION/MEDICATION TEACHING AND MEDICATION RECONCILIATION TEACHING GIVEN TO PATIENT. PT AND FAMILY MEMBER VERBALIZED COMPLETE UNDERSTANDING. IV SITE REMOVED WITH MINIMAL BLOOD LOSS AND LUMEN COMPLETELY INTACT. ID BANDS REMOVED. FLU VACCINE AND PNEUMOVAX UP TO DATE. ALL PERSONAL BELONGINGS ARE WITH PATIENT. PATIENT DISCHARGED VIA WHEELCHAIR AND WILL GO HOME WITH FAMILY MEMBER VIA PRIVATE VEHICLE. Addendum: 11/06/18 at 1446 by Andria Felipe Meng, RN PATIENT IN STABLE CONDITION.
[2018-11-06] MEDS ORDERED: MIDAZOLAM 2 MG/2 ML VIAL IVP ONE (14:05)
[2018-11-06] MEDS ORDERED: fentaNYL 0.05 MG/ML VIAL IVP ONE (14:05)
--- NOTE | 2018-11-06 15:19 | NUR ---
LATE ENTRY FOR 1300 CM NOTE PER NAVDEEP OF [facility] (PCP) PH# [phone], THE PATIENT IS SCHEDULED FOR OUTPATIENT FOLLOW UP WITH DR. [facility] ON NOVEMBER 12, 2018 1:45 PM AT THE CLINIC AT [address] [place] [address]. I GAVE THE PATIENT AND PATIENT'S GRAND DAUGHTER, KEYSHA MURRY WHO WAS BEDSIDE, THE PATIENT'S OUTPATIENT FOLLOW UP SCHEDULE.
== END 2018-11-06 14:40 | disposition home or self-care (01) | DRG 254 ==
LOC: MED 09:33 → MTU 14:35
PROVIDERS: ADMIT Internal Medicine; ATTEND Internal Medicine
PROC: 0DBF8ZZ Excision of Right Large Intestine, Via Natural or Artificial Opening Endoscopic (ICD-10-PCS; principal; 2018-11-06 11:00)
DX: D49.0 Neoplasm of unspecified behavior of digestive system (principal); J18.9 Pneumonia, unspecified organism; E44.0 Moderate protein-calorie malnutrition; K76.6 Portal hypertension; E83.42 Hypomagnesemia; E87.1 Hypo-osmolality and hyponatremia; K74.60 Unspecified cirrhosis of liver; K57.30 Diverticulosis of large intestine without perforation or abscess without bleeding; K64.8 Other hemorrhoids; I10 Essential (primary) hypertension; N40.0 Benign prostatic hyperplasia without lower urinary tract symptoms; K21.9 Gastro-esophageal reflux disease without esophagitis; E16.2 Hypoglycemia, unspecified; Z87.11 Personal history of peptic ulcer disease; Z86.19 Personal history of other infectious and parasitic diseases; Z68.22 Body mass index [BMI] 22.0-22.9, adult; Z95.0 Presence of cardiac pacemaker; Z79.899 Other long term (current) drug therapy
CPT/HCPCS: 36415; 47000; 71045; 74160; 80053; 81003; 82105; 82140; 82150; 82378; 83605; 83690; 83735; 84484; 85025; 85610; 85730; 86301; 86704; 86706; 87040; 87081; 87086; 87340; 88307; 88313; 93005; 96361; 96374; 96375; 99285; J2001; J2250; J2270; J2405; J2765; J3010; J7030; Q0092; Q9967

== ENCOUNTER 2018-12-23 10:48 | Emergency (ER) | payer OTHER ==
[~2018-12-23] VITALS: Ht 167.6 cm; Wt 57.6 kg
[~2018-12-23 10:48] MED LIST changes: +ACET-9525 PO; -NAPR-54 PO; +SENN-74 PO
[2018-12-23 11:14] VITALS: BP 126/80
--- NOTE | 2018-12-23 11:21 | NUR ---
PT TO ER BED 6
--- NOTE | 2018-12-23 11:34 | NUR ---
PT BIB GRANDDAUGHTER TO THE ED WITH THE CHIEF C/O ABDOMINAL BLOATING FOR 10 DAYS. REPORTS DIARRHEA SINCE YESTERDAY X3. DIARRHEA X1 TODAY. NO BLOOD IN DIARRHEA. DENIES NAUSEA, VOMITING, FEVER. DENIES ABDOMINAL PAIN. HX OF HEPATITIS, PROSTATE AND BRADYCARDIA. PT ON PACE CHANG PER GRAND DAUGHTER.
--- NOTE | 2018-12-23 11:36 | NUR ---
PT BEING EVALUATED BY ER AT THIS TIME.
[2018-12-23] MEDS ORDERED: NACL 0.9% 500 ML IV SCH (11:47)
[2018-12-23] MEDS ORDERED: MORPHINE SULFATE 2 MG/ML SYR IVP ONE (11:50)
[2018-12-23 13:30] LABS: BASOPHILS % (AUTO) 0.7 % (0.0-2.0); EOSINOPHILS % (AUTO) 0.6 % (0.0-4.0); HEMATOCRIT 45.4 % (36-52); HEMOGLOBIN 15.1 g/dL (12.0-18.0); LYMPHOCYTES # (AUTO) 0.8 K/uL (2.0-11.5); LYMPHOCYTES % (AUTO) 21.2 % (20.5-51.1); MEAN CORPUSCULAR HEMOGLOBIN 32 pg (27-31); MEAN CORPUSCULAR HGB CONC 33 g/dL (33-37); MEAN CORPUSCULAR VOLUME 95.3 fL (80-94); MONOCYTES # (AUTO) 0.2 K/uL (0.8-1.0); MONOCYTES % (AUTO) 6.3 % (1.7-9.3); NEUTROPHILS # (AUTO) 2.6 K/uL (1.8-7.7); NEUTROPHILS % (AUTO) 71.2 % (42.2-75.2); PLATELET COUNT (AUTO) 162 K/uL (140-450); RED BLOOD CELL COUNT(AUTO) 4.77 MIL/uL (4.20-6.10); RED CELL DISTRIBUTION WIDTH 15.6 % (11.6-13.7); WHITE BLOOD COUNT (AUTO) 3.7 K/uL (4.8-10.8)
[2018-12-23 13:44] LABS: ALBUMIN 2.7 g/dL (3.4-5.0); ANION GAP 10.2 (8-16); ASPARTATE AMINOTRANSFERASE 158 U/L (15-37); CARBON DIOXIDE 26.5 mmol/L (21-32); CHLORIDE 100 mmol/L (98-107); CREATININE 0.7 mg/dL (0.7-1.3); GLUCOSE 116 mg/dL (74-106); POTASSIUM 3.7 mmol/L (3.5-5.1); SODIUM SERUM 133 mmol/L (136-145); TOTAL BILIRUBIN 1.1 mg/dL (0.0-1.0); UREA NITROGEN, BLOOD 20 mg/dL (7-18)
[2018-12-23 13:51] LABS: PROTHROMBIN TIME 12.4 secs (10.8-13.4)
--- NOTE | 2018-12-23 14:20 | NUR ---
PT UNABLE TO GIVE URINE AT THIS TIME. ER MD AWARE. NO UA PER DOCTOR.
[2018-12-23] MEDS ORDERED: LIDOCAINE VISCOUS 2% 20 ML UDC PO ONE (14:30)
[2018-12-23] MEDS ORDERED: DICYCLOMINE HCL LIQUID 10 MG/5 ML UDC PO ONE (14:30)
[2018-12-23] MEDS ORDERED: ALUMINUM HYD/MAG/SIMETHICONE 30 ML UDC PO ONE (14:30)
[2018-12-23] MEDS ORDERED: PANTOPRAZOLE 40 MG INJ VIAL IVP ONE (14:30)
--- NOTE | 2018-12-23 14:44 | NUR ---
Patient discharged with v/s stable. Written and verbal after care instructions given and explained. Patient alert, oriented and verbalized understanding of instructions. Ambulatory with steady gait. All questions addressed prior to discharge. ID band removed. Patient advised to follow up with PMD. Rx of MOTRIN AND TRAMADOL given. Patient educated on indication of medication including possible reaction and side effects. Opportunity to ask questions provided and answered.
[2018-12-23 14:45] VITALS: BP 119/72
== END 2018-12-23 14:44 | disposition home or self-care (01) ==
LOC: MED 10:48
DX: K29.70 Gastritis, unspecified, without bleeding (principal); K21.9 Gastro-esophageal reflux disease without esophagitis; N40.0 Benign prostatic hyperplasia without lower urinary tract symptoms; Z95.0 Presence of cardiac pacemaker; Z79.891 Long term (current) use of opiate analgesic; Z79.899 Other long term (current) drug therapy
CPT/HCPCS: 71045; 74176; 80053; 82140; 83605; 83880; 84484; 85025; 85610; 85730; 87040; 93005; 96361; 96374; 99284; J2270; J7030; Q0092

== ENCOUNTER 2019-01-20 18:28 | Inpatient (IN) | payer OTHER ==
[~2019-01-20] VITALS: Ht 162.6 cm; Wt 54.4 kg
[2019-01-20 18:44] VITALS: BP 142/77
--- NOTE | 2019-01-20 18:45 | NUR ---
Patient to bed 3. RN evaluating patient at bedside.
--- NOTE | 2019-01-20 18:50 | NUR ---
c/o epigastric pain x 10 days. decreased appetite.ABDOMEN : SOFT. hx: hyperlipidemia PATIENT STATES STABBING PAIN OF 8/10 AT THIS TIME; PATIENT POSITIONED FOR COMFORT; HOB ELEVATED; BEDRAILS UP X1; BED DOWN. ER MD MADE AWARE OF PT STATUS.
--- NOTE | 2019-01-20 19:18 | NUR ---
Pt report given to SAVANAH MOON. Transfer of care at this time.
--- NOTE | 2019-01-20 19:21 | NUR ---
report recieved from RED Wood. Transfer of care at this time.
[2019-01-20 19:25] LABS: BASOPHILS % (AUTO) 0.9 % (0.0-2.0); EOSINOPHILS % (AUTO) 1.2 % (0.0-4.0); HEMATOCRIT 48.7 % (36-52); HEMOGLOBIN 16.1 g/dL (12.0-18.0); LYMPHOCYTES # (AUTO) 1.1 K/uL (2.0-11.5); LYMPHOCYTES % (AUTO) 31.6 % (20.5-51.1); MEAN CORPUSCULAR HEMOGLOBIN 31 pg (27-31); MEAN CORPUSCULAR HGB CONC 33 g/dL (33-37); MEAN CORPUSCULAR VOLUME 92.4 fL (80-94); MONOCYTES # (AUTO) 0.3 K/uL (0.8-1.0); MONOCYTES % (AUTO) 7.9 % (1.7-9.3); NEUTROPHILS # (AUTO) 2.1 K/uL (1.8-7.7); NEUTROPHILS % (AUTO) 58.4 % (42.2-75.2); PLATELET COUNT (AUTO) 230 K/uL (140-450); RED BLOOD CELL COUNT(AUTO) 5.28 MIL/uL (4.20-6.10); WHITE BLOOD COUNT (AUTO) 3.6 K/uL (4.8-10.8)
[2019-01-20 19:26] LABS: APPEARANCE,URINE CLEAR (CLEAR); BILIRUBIN,URINE 1+ (NEGATIVE); BLOOD, URINE TRACE-I (NEGATIVE); COLOR,URINE YELLOW (YELLOW); LEUKOCYTE ESTERASE ,URINE NEGATIVE (NEGATIVE); NITRITE, URINE NEGATIVE (NEGATIVE); UGLUCOSE NEGATIVE (NEGATIVE)
--- NOTE | 2019-01-20 19:30 | NUR ---
UTILIZING DRAWING FRAME TENDER PHONE FOR PT TRANSLATION. DR. JACINTO EVALUATING PATIENT.
[2019-01-20 19:36] LABS: ANION GAP 10.4 (8-16); CARBON DIOXIDE 28.4 mmol/L (21-32); CHLORIDE 100 mmol/L (98-107); CREATININE 0.8 mg/dL (0.7-1.3); GLUCOSE 128 mg/dL (74-106); POTASSIUM 3.8 mmol/L (3.5-5.1); SODIUM SERUM 135 mmol/L (136-145); UREA NITROGEN, BLOOD 15 mg/dL (7-18)
[2019-01-20 19:41] LABS: ALBUMIN 2.9 g/dL (3.4-5.0); ASPARTATE AMINOTRANSFERASE 254 U/L (15-37); LIPASE 183 U/L (73-393); TOTAL BILIRUBIN 1.2 mg/dL (0.0-1.0)
--- NOTE | 2019-01-20 19:42 | NUR ---
Dr. Finley evaluating patient at bedside.
[2019-01-20] MEDS ORDERED: LORA-476 PO (19:54)
[2019-01-20] MEDS ORDERED: TAMS0.4C96 PO (19:54)
[2019-01-20] MEDS ORDERED: DONE10TA10 PO (19:54)
[2019-01-20] MEDS ORDERED: DOCU-299 PO (19:54)
[2019-01-20] MEDS ORDERED: RANI150T8 PO (19:54)
[2019-01-20] MEDS ORDERED: NAPR-54 PO (19:54)
[2019-01-20] MEDS ORDERED: MECL-272 PO (19:54)
[2019-01-20] MEDS ORDERED: SIMV10TA1 PO (19:54)
[2019-01-20] MEDS ORDERED: TRAZ-343 PO (19:54)
[2019-01-20] MEDS ORDERED: ASPI-1718 PO (19:54)
[2019-01-20] MEDS ORDERED: KETOROLAC 30 MG/ML VIAL IVP ONE (19:55)
--- NOTE | 2019-01-20 20:10 | NUR ---
PT TAKEN TO CT.
--- NOTE | 2019-01-20 20:15 | NUR ---
PT RETURN FROM CT
--- NOTE | 2019-01-20 20:55 | NUR ---
Pt seen with eyes closed. visble chest rise and fall. VSS. bed in lowest position. bedrail x2 up. family at bedside. will continue to monitor.
[2019-01-20] MEDS ORDERED: LORazepam 2 MG/ML VIAL IVP PRN (21:55)
[2019-01-20] MEDS ORDERED: ALBUTEROL 0.083% 2.5 MG/3 ML NEBU INH PRN (21:55)
[2019-01-20] MEDS ORDERED: ACETAMINOPHEN 325 MG TAB PO PRN (21:55)
[2019-01-20] MEDS ORDERED: ONDANSETRON 4 MG/2 ML VIAL IVP PRN (21:55)
--- NOTE | 2019-01-20 22:40 | NUR ---
Patient will be admitted to care of Dr. Roa. Admited to [facility]. Will go to room 106B. Belongings list completed. VSS at time of transport. Report to RED See. Transfer of care at this time.
--- NOTE | 2019-01-20 22:40 | NUR ---
RECEIVED PATIENT FROM ER. RECEIVED REPORT FROM RED PAVON AT BEDSIDE. PATIENT ALERT AND ORIENTED, IN STABLE CONDITION ON RA AND AMBULATORY, FAMILY AT BEDSIDE. ORIENTED PATIENT TO ROOM AND UNIT, SAFETY PRECAUTIONS IN PLACE, CALL LIGHT IN REACH.
[2019-01-20] MEDS ORDERED: cefTRIAXone 1,000 MG VIAL ONE (23:11)
--- NOTE | 2019-01-20 23:40 | NUR ---
IV IS LEAKING. WILL DC AND START A NEW IV ACCESS IN ANOTHER LOCATION.
[2019-01-21] VITALS: BP 150/74
--- NOTE | 2019-01-21 01:20 | NUR ---
DISCONTINUED 22G FROM LEFT HAND, TIP INTACT. INSERTED NEW 22G IV IN LEFT FOREARM, 1 TRY, FLUSHING WELL NO C/O PAIN. STARTED IV ROCEPHIN
--- NOTE | 2019-01-21 01:50 | NUR ---
ROCEPHIN FINISHED INFUSING. DISCONNECTED TUBING. PATIENT IS SALINE LOCKED. PATIENT STATES HIS ABD PAIN IS A 2/10 AND DOES NOT WANT ANY MEDICATION AT THIS TIME. NO SIGNS OF DISTRESS ON RA. SAFETY PRECAUTIONS IN PLACE.
--- NOTE | 2019-01-21 02:39 | NUR ---
PATIENT SLEEPING. NO SIGNS OF DISTRESS ON RA. SAFETY PRECAUTIONS IN PLACE. WILL CONTINUE TO MONITOR.
--- NOTE | 2019-01-21 05:30 | NUR ---
PATIENT SLEEPING NO SIGNS OF DISTRESS ON RA.
[2019-01-21 06:12] LABS: BASOPHILS # (AUTO) 0.1 K/uL (0.00-0.22); BASOPHILS % (AUTO) 1.8 % (0.0-2.0); EOSINOPHILS # (AUTO) 0.1 K/uL (0-0.4); EOSINOPHILS % (AUTO) 2.7 % (0.0-4.0); HEMATOCRIT 43.5 % (36-52); HEMOGLOBIN 14.5 g/dL (12.0-18.0); LYMPHOCYTES # (AUTO) 0.6 K/uL (2.0-11.5); LYMPHOCYTES % (AUTO) 18.3 % (20.5-51.1); MEAN CORPUSCULAR HEMOGLOBIN 31 pg (27-31); MEAN CORPUSCULAR HGB CONC 33 g/dL (33-37); MEAN CORPUSCULAR VOLUME 91.6 fL (80-94); MONOCYTES # (AUTO) 0.4 K/uL (0.8-1.0); MONOCYTES % (AUTO) 11.1 % (1.7-9.3); NEUTROPHILS # (AUTO) 2.1 K/uL (1.8-7.7); NEUTROPHILS % (AUTO) 66.1 % (42.2-75.2); PLATELET COUNT (AUTO) 173 K/uL (140-450); RED BLOOD CELL COUNT(AUTO) 4.75 MIL/uL (4.20-6.10); RED CELL DISTRIBUTION WIDTH 16.1 % (11.6-13.7); WHITE BLOOD COUNT (AUTO) 3.2 K/uL (4.8-10.8)
[2019-01-21 07:04] LABS: ALBUMIN 2.4 g/dL (3.4-5.0); ANION GAP 11.7 (8-16); ASPARTATE AMINOTRANSFERASE 229 U/L (15-37); CARBON DIOXIDE 27.4 mmol/L (21-32); CHLORIDE 101 mmol/L (98-107); CREATININE 0.7 mg/dL (0.7-1.3); GLUCOSE 70 mg/dL (74-106); POTASSIUM 4.1 mmol/L (3.5-5.1); SODIUM SERUM 136 mmol/L (136-145); TOTAL BILIRUBIN 1.1 mg/dL (0.0-1.0); UREA NITROGEN, BLOOD 16 mg/dL (7-18)
[2019-01-21 07:26] LABS: MAGNESIUM 1.6 mg/dL (1.8-2.4)
--- NOTE | 2019-01-21 07:30 | NUR ---
GAVE BEDSIDE REPORT TO DAY SHIFT RN. PATIENT IN STABLE CONDITION.
--- NOTE | 2019-01-21 07:35 | NUR ---
RECEIVED PT FROM POLYSOMNOGRAPHY TECHNOLOGIST NURSE, PT IS AWAKE AND SEATED ON THE BED WITH AN IV LINE FA G.22 ON SALINE LOCK, PT IS A0X4 BUT SPEAKS IRISH, SIDE RAILS ARE UP AND CALL LIGHT WITHIN REACH, PT VERBALIZED A PAIN RATE OF 8/10 ON THE EPIGASTRIC AREA INTERPRETED BY THE FAMILY. NO M UNTOWARD SIGNS AND SYMPTOM NOTED. WILL MEDICATE AND MONITOR PT.
[2019-01-21 08:00] VITALS: BP 133/75
--- NOTE | 2019-01-21 08:20 | NUR ---
PATIENT HAS BEEN SCREENED AND CATEGORIZED HIGH NUTRITION RISK. PATIENT WILL BE SEEN WITHIN 1-2 DAYS OF ADMISSION. 01/21/19-01/22/[address]
[2019-01-21] MEDS: MORPHINE SULFATE 4 MG/ML SYR IVP PRN (09:24)
--- NOTE | 2019-01-21 09:24 | NUR ---
PT IS AWAKE AND MEDICATION WAS GIVEN, BP WAS CHECKED AND RESULT IS 134/70, PULSE IS 60 AND O2 SATURATION IS 94%. MEDICATION WAS GIVEN VIA IV PUSH AND SUBQ IN THE ABDOMEN AND PT TOLERATED IT. WILL MONITOR PT.
[2019-01-21] MEDS: ENOXAPARIN 40 MG/0.4 ML SYR SUBQ SCH (09:26)
--- NOTE | 2019-01-21 11:04 | NUR ---
CALLED OFFICE OF DR ARAGON SPOKE WITH ZI [phone] AND FAXED PATIENT CLINICALS TO [phone], APPOINTMENT MADE FOR 01/27/19 AT 11 AM , [address] [place] [address].
--- NOTE | 2019-01-21 14:49 | NUR ---
CALLED OFFICE OF DR Adriana ARAGON, SPOKE TO ZI [phone], FOLLOW-UP APPOINTMENT MADE ON 01/27/18 AT 11 AM. [address] [place] [address]. COPY OF FOLLOW-UP APPOINTMENT GIVEN TO PATIENT AND SPOKE TO ANIBAL BENZ ON PATIENT CELLPHONE AND MADE AWARE OF THE APPOINTMENT, VERBALIZED UNDERSTANDING. PRIMARY NURSE LISA MADE AWARE.
--- NOTE | 2019-01-21 15:00 | NUR ---
PT WAS SERVED THE CONSENT FOR THE CT OF ABDOMEN AND PELVIS WITH CONTRAST, INTERPRETED BY NEVILLE #[id number] AND PT VERBALIZED UNDERSTANDING.
--- NOTE | 2019-01-21 15:20 | NUR ---
CONSENT FOR CT OF ABDOMEN/PELVIS WITH CONTRAST WAS SIGNED BY THE PT NOW. DR. MIRANDA WAS INFORMED.
--- NOTE | 2019-01-21 15:45 | NUR ---
CONSENT FOR THE CT OF ABDOMEN/PELVIS WAS FAXED TO [facility], CONFIRMATION WAS RECEIVED AND ATTACHED TO CHART.
--- NOTE | 2019-01-21 15:46 | NUR ---
FAXED CONSENT FORM TO [phone] HERNANDEZ. CONFIRMATION PAPER WAS RECEIVED, AWAITING FAXED BACK FROM [facility].
--- NOTE | 2019-01-21 15:50 | NUR ---
01/21/19 RD INITIAL ASSESSMENT COMPLETED PLEASE REFER TO NUTRITION ASSESSMENT UNDER CARE ACTIVITY FOR ESTIMATED NUTRITIONAL NEEDS. 1. CONTINUE CLEAR LIQUID DIET MEDICALLY NECESSARY 2. WHEN PT IS MEDICALLY STABLE TO ADVANCE DIET, RECOMMEND HEPATIC DIET 3. RECOMMEND ENSURE CLEAR BID 4. GENERAL HEALTHY EATING EDUCATION WAS PROVIDED 5. RD TO FOLLOW-UP 3-5 DAYS, MODERATE RISK CHRISTIANO SILVA RD
[2019-01-21 16:00] VITALS: BP 138/75
--- NOTE | 2019-01-21 17:00 | NUR ---
PT IS AWAKE AND VITAL SIGNS CHECKED AND IS STABLE. WILL MONITOR PT.
--- NOTE | 2019-01-21 19:25 | NUR ---
RECEIVED ENDORSEMENT FROM LISA MOON DAYSHIFT NURSE, AT BEDSIDE FOR CONTINUITY OF CARE, PT IN STABLE CONDITION.
--- NOTE | 2019-01-21 19:25 | NUR ---
ENDORSED PT TO MARKETING ACCOUNT MANAGER NURSE, PT IS STABLE AT THIS TIME.
--- NOTE | 2019-01-21 20:00 | NUR ---
PT AOX4 AND IS BELARUSIAN SPEAKING. PT IN LOW BED WITH SIDE RAILS UP X2, HOB UP 35%. PT HAS 2 IV SITES THAT ARE SALINE LOCKED AT THIS TIME . HE HAS A LEFT F/A 22G AND A LAC 20G INTACT AND FLUSHED PATENT. LUNG SOUNDS CLEAR AND BOWEL SOUNDS PRESENT. PT IS ABLE TO AMBULATE TO RESTROOM AND HE SAYS PAIN IS 2/10. HE IS ALSO MADE AWARE OF PENDING CT OF ABDOMEN WITH CONTRAST. GRANDDAUGHTER AT BEDSIDE ASSISTING WITH TRANSLATION. V/S FOLLOWS T 98.2 P 60 R 18 B/P 140/78 02 94% ON ROOM AIR. PT SAID PAIN IS TOLERABLE AND DOESN'T WANT ANY PAIN MEDICATION AT THIS TIME.
--- NOTE | 2019-01-21 22:15 | NUR ---
PT AMBULATED TO TOILET AND BACK , HE CONTINUES TO DENY PAIN AT THIS TIME.
--- NOTE | 2019-01-21 23:30 | NUR ---
PT IN BED RESTING WITH EYES CLOSED BUT AROUSABLE TO NAME. V/S FOLLOWS T 97.8 P 60 R 18 B/P 141/79 02 94% ON ROOM AIR. ROCEPHIN HUNG ORDERED.
[2019-01-22] VITALS: BP 141/79
--- NOTE | 2019-01-22 | NUR ---
ROCEPHIN IV ABT 50ML INFUSION COMPLETED.
[2019-01-22] MEDS: MORPHINE SULFATE 2 MG/ML SYR IVP PRN ×2 (00:24→16:41)
--- NOTE | 2019-01-22 00:30 | NUR ---
PT C/O 03/19 PAIN IN LEFT SIDE OF ABDOMEN GIVEN IVP/PRN MORPHINE ORDERED FOR SEVERER PAIN. WILL CONTINUE TO MONITOR PT FOR PAIN RELIEF.
--- NOTE | 2019-01-22 02:00 | NUR ---
PT UP AND BACK AND AMBULATED WITH STEADY GAIT TO TOILET AND BACK, NO C/O OF PAIN VOICED.
--- NOTE | 2019-01-22 03:30 | NUR ---
PT IN BED SLEEPING NO S/S OF PAIN OR DISTRESS NOTED. BED LOW SIDE RAILS UP X2. IV SITE IS SALINE LOCKED.
--- NOTE | 2019-01-22 06:30 | NUR ---
PT IN LOW BED AWAKE AND ON CELL PHONE, PT DENIES PAIN AT THIS TIME.
[2019-01-22 06:46] LABS: EOSINOPHILS # (AUTO) 0.1 K/uL (0-0.4); EOSINOPHILS % (AUTO) 2.8 % (0.0-4.0); HEMATOCRIT 44.2 % (36-52); LYMPHOCYTES # (AUTO) 0.5 K/uL (2.0-11.5); LYMPHOCYTES % (AUTO) 14.3 % (20.5-51.1); MEAN CORPUSCULAR HEMOGLOBIN 31 pg (27-31); MEAN CORPUSCULAR HGB CONC 34 g/dL (33-37); MEAN CORPUSCULAR VOLUME 91.4 fL (80-94); MONOCYTES # (AUTO) 0.4 K/uL (0.8-1.0); MONOCYTES % (AUTO) 12.3 % (1.7-9.3); NEUTROPHILS # (AUTO) 2.5 K/uL (1.8-7.7); NEUTROPHILS % (AUTO) 69.6 % (42.2-75.2); PLATELET COUNT (AUTO) 178 K/uL (140-450); RED BLOOD CELL COUNT(AUTO) 4.83 MIL/uL (4.20-6.10); RED CELL DISTRIBUTION WIDTH 16.8 % (11.6-13.7); WHITE BLOOD COUNT (AUTO) 3.6 K/uL (4.8-10.8)
--- NOTE | 2019-01-22 07:21 | NUR ---
PT IN BED AOX4, NO S/S OF PAIN OR DISTRESS NOTED. LILLI FROM [facility] CALLED, SHE WAS INFORMED THAT PT STILL NEEDS TO HAVE MD SIGN CONSENT BEFORE PT CAN HAVE THE CT WITH CONTRAST. WILL ENDORSE TO AM SHIFT TO HAVE MD SIGN CONSENT. PT BREAKFAST BEING HELD FOR NOW, SO THAT WHEN MD SIGNS PT CAN HAVE TEST RIGHT AWAY. DAY WATER LEAK REPAIRER'S MADE AWARE TO HOLD PT BREAKFAST.
[2019-01-22 07:37] LABS: ALBUMIN 2.3 g/dL (3.4-5.0); ANION GAP 11.6 (8-16); ASPARTATE AMINOTRANSFERASE 205 U/L (15-37); CARBON DIOXIDE 27.2 mmol/L (21-32); CHLORIDE 100 mmol/L (98-107); CREATININE 0.6 mg/dL (0.7-1.3); GLUCOSE 71 mg/dL (74-106); POTASSIUM 3.8 mmol/L (3.5-5.1); SODIUM SERUM 135 mmol/L (136-145); TOTAL BILIRUBIN 1.3 mg/dL (0.0-1.0); UREA NITROGEN, BLOOD 10 mg/dL (7-18)
[2019-01-22 07:39] LABS: MAGNESIUM 1.6 mg/dL (1.8-2.4)
--- NOTE | 2019-01-22 07:40 | NUR ---
PATIENT WAS AWAKE, ALERT. RESPIRATION EVEN, UNLABOR ON ROOM AIR. SKIN DRY AND WARM. IV PATENT AND INTACT. DENIED PAIN AT THIS TIME. PLAN OF CARE WAS DISCUSSED WITH PATIENT. BED AT LOW POSITION, SIDE RAILS UP. CALL LIGHT WITHIN REACH.
[2019-01-22 08:00] VITALS: BP 149/94
--- NOTE | 2019-01-22 09:00 | NUR ---
PATIENT WAS AWAKE, ALERT. RESPIRATION EVEN, UNLABOR ON ROOM AIR. NO DISTRESS NOTED AT THIS TIME
[2019-01-22] MEDS: ENOXAPARIN 40 MG/0.4 ML SYR SUBQ SCH (09:15)
--- NOTE | 2019-01-22 11:47 | NUR ---
CALLED [facility] AND ABLE TO SPEAK TO ZI, SHE PROVIDED ME WITH APPOINTMENT DATE FOR 01/30/19 AT 1115 AM. PRINTED COPY PROVIDED TO PATIENT.
--- NOTE | 2019-01-22 12:15 | NUR ---
IV 20G WAS REMOVED FROM LEFT AC DUE TO INFILTRATION, CATHETER INTACT, BLEEDING WAS CONTROLLED
--- NOTE | 2019-01-22 12:16 | NUR ---
PATIENT IS BEING TRANSFERRED TO CT SCAN. PATIENT IS STABLE AT THIS TIME
[2019-01-22] MEDS ORDERED: MAG SULF 2000 MG/WATER PREMIX 50 ML IV SCH (13:00)
--- NOTE | 2019-01-22 14:00 | NUR ---
PATIENT WAS SLEEPING COMFORTABLY. RESPIRATION EVEN, UNLABOR ON ROOM AIR. NO DISTRESS NOTED AT THIS TIME
[2019-01-22 16:00] VITALS: BP 136/78
--- NOTE | 2019-01-22 16:30 | NUR ---
DR. MIRANDA WAS MADE AWARE OF CT WITH CONTRAST NOT BEING DONE DUE TO MULTIPLE FAIL ATTEMPT TO START IV. MIDLINE WAS ORDER PER DR. MIRANDA.
--- NOTE | 2019-01-22 17:00 | NUR ---
CONSENT WAS OBTAINED AT BEDSIDE, SIGNED BY PATIENT. CONSENT WAS FAXED TO DR. MIRANDA OFFICE. CORINNE CONFIRMED FAX WAS RECEIVED.
--- NOTE | 2019-01-22 18:30 | NUR ---
PATIENT IS AWAKE, ALERT. RESPIRATION EVEN, UNLABOR ON ROOM AIR. IV PATENT AND INTACT. NO DISTRESS NOTED AT THIS TIME. FAMILY AT BEDSIDE. CALL LIGHT WITHIN REACH
--- NOTE | 2019-01-22 19:22 | NUR ---
ENDORSEMENT GIVEN TO WOOD EXPERIMENTAL MECHANIC NURSE. PATIENT IS STABLE AT THIS TIME
--- NOTE | 2019-01-22 19:23 | NUR ---
RECD. RESTING IN BED, AWAKE, A/OX4. RESPIRATION EVEN AND UNLABORED. IV SALINE LOCK AT THE LEFT FOREARM, G22, PATENT AND INTACT. ABDOMEN, SOFT, NON-TENDER WITH POSITIVE BOWEL SOUNDS ON ALL QUADRANTS. PLAN OF CARE FOR THE SHIFT DISCUSSED WITH DAUGHTER AND PATIENT. VERBALIZED UNDERSTANDING. DENIES PAIN 0/10.
--- NOTE | 2019-01-22 19:30 | NUR ---
Patient's Plan of Care was discussed and reviewed with PSYCHIATRIC TECHNICIAN ASSISTANT: ANITA KELLEY
--- NOTE | 2019-01-22 20:00 | NUR ---
Called PICC line nurse [phone] and left a message
--- NOTE | 2019-01-22 20:00 | NUR ---
FOLLOW UP WITH [facility] VETERINARY PHARMACOLOGIST REGARDING PICC LINE PLACEMENT FOR PATIENT. WILL CALL PICC LINE NURSE.
--- NOTE | 2019-01-22 20:30 | NUR ---
[id number] [facility] [employer] IS ALREADY CLOSED BUT HE LEFT A MESSAGE. WILL INFORMED .
--- NOTE | 2019-01-22 21:40 | NUR ---
INFORMED DR. COOK (MANAGER CCU TONIGHT), CT OF ABDOMEN AND PELVIS WITH IV CONTRAST MAY NOT BE DONE TONIGHT BECAUSE PICC LINE NURSE WILL NOT BE ABLE TO COME.
--- NOTE | 2019-01-22 22:22 | NUR ---
CHARGE NURSE CHER ORDERED US GUIDED VASCULAR ACCESS PER PICC LINE NURSE REQUEST.
--- NOTE | 2019-01-22 22:35 | NUR ---
PICC LINE NURSE, JOSE ALBERTO BISHOP.
--- NOTE | 2019-01-22 22:40 | NUR ---
PICC LINE NURSE EXPLAINED TO PATIENT THE PROCEDURE USING ARMENIAN RESTAURANT SHIFT SUPERVISOR LEROY #[id number]. DAUGHTER AWARE OF THE PROCEDURE. US GUIDED TECH CAME.
--- NOTE | 2019-01-22 22:56 | NUR ---
MIDLINE PICC LINE INSERTED BY NURSE ABRAMS AT THE RIGHT UPPER ARM, TWO LUMEN THEN COVERED WITH DRESSING.
--- NOTE | 2019-01-22 23:05 | NUR ---
TAKEN TO RADIOLOGY FOR CT OF ABDOMEN AND PELVIS WITH IV CONTRAST.
--- NOTE | 2019-01-22 23:50 | NUR ---
TAKEN BACK VIA W/C TO MED SURG TELE UNIT.
[2019-01-23] VITALS: BP 120/75
--- NOTE | 2019-01-23 | NUR ---
MADE COMFORTABLE IN BED WITH PILLOWS AND WARM BLANKETS, INSTRUCTED TO CALL NURSE IF HE IS IN PAIN. VERBALIZED UNDERSTANDING.
--- NOTE | 2019-01-23 04:00 | NUR ---
STILL SLEEPING COMFORTABLY IN BED.
--- NOTE | 2019-01-23 06:52 | NUR ---
CONDITION REMAIN STABLE. NO COMPLAINT OF ABDOMINAL PAIN DURING SHIFT. WILL ENDORSE TO AM NURSE FOR CONTINUITY OF CARE.
--- NOTE | 2019-01-23 07:15 | NUR ---
RECEIVED REPORT FROM INFORMATION MANAGER NURSE WARREN FOR CONTINUITY OF CARE. PT IN STABLE CONDITION. MID LINE INTACT AND PATENT. ROOM AIR. SAFETY MEASURES IN PLACE. CALL LIGHT AT BEDSIDE. BED IN LOW POSITION. WILL CONTINUE TO MONITOR.
[2019-01-23 08:00] VITALS: BP 129/75
[2019-01-23 08:01] LABS: BASOPHILS % (AUTO) 1.2 % (0.0-2.0); EOSINOPHILS # (AUTO) 0.1 K/uL (0-0.4); HEMATOCRIT 44.9 % (36-52); LYMPHOCYTES # (AUTO) 0.4 K/uL (2.0-11.5); LYMPHOCYTES % (AUTO) 12.9 % (20.5-51.1); MEAN CORPUSCULAR HEMOGLOBIN 31 pg (27-31); MEAN CORPUSCULAR HGB CONC 33 g/dL (33-37); MEAN CORPUSCULAR VOLUME 91.9 fL (80-94); MONOCYTES # (AUTO) 0.4 K/uL (0.8-1.0); MONOCYTES % (AUTO) 11.2 % (1.7-9.3); NEUTROPHILS # (AUTO) 2.3 K/uL (1.8-7.7); NEUTROPHILS % (AUTO) 71.7 % (42.2-75.2); PLATELET COUNT (AUTO) 183 K/uL (140-450); RED BLOOD CELL COUNT(AUTO) 4.89 MIL/uL (4.20-6.10); WHITE BLOOD COUNT (AUTO) 3.2 K/uL (4.8-10.8)
[2019-01-23 08:12] LABS: MAGNESIUM 1.7 mg/dL (1.8-2.4); PHOSPHORUS 2.9 mg/dL (2.5-4.9)
[2019-01-23 08:13] LABS: ALBUMIN 2.4 g/dL (3.4-5.0); ASPARTATE AMINOTRANSFERASE 187 U/L (15-37); CARBON DIOXIDE 26.6 mmol/L (21-32); CHLORIDE 99 mmol/L (98-107); CREATININE 0.6 mg/dL (0.7-1.3); GLUCOSE 75 mg/dL (74-106); POTASSIUM 3.6 mmol/L (3.5-5.1); SODIUM SERUM 133 mmol/L (136-145); TOTAL BILIRUBIN 1.4 mg/dL (0.0-1.0); UREA NITROGEN, BLOOD 7 mg/dL (7-18)
[2019-01-23] MEDS: ENOXAPARIN 40 MG/0.4 ML SYR SUBQ SCH (09:09)
--- NOTE | 2019-01-23 09:10 | NUR ---
GAVE ORDERED DUE MEDICATIONS AT THIS TIME. PT TOLERATED WELL. FAMILY AT BEDSIDE. WILL CONTINUE TO MONITOR. BED IN LOW POSITION. CALL LIGHT AT BEDSIDE.
--- NOTE | 2019-01-23 14:00 | NUR ---
OBTAINED VERBAL CONSENT FROM PT GRANDDAUGHTER KEYSHA MURRY FOR LIVER BIOPSY. [facility] CHARGE NURSE WAS A WITNESS TO THE VERBAL CONSENT OVER THE PHONE.
[2019-01-23 16:00] VITALS: BP 147/68
--- NOTE | 2019-01-23 19:21 | NUR ---
GAVE REPORT TO SUBMARINE CABLE EQUIPMENT TECHNICIAN NURSE WARREN FOR CONTINUITY OF CARE. PT IN STABLE CONDITION.
--- NOTE | 2019-01-23 19:22 | NUR ---
RECD. RESTING IN BED, AWAKE, A/OX4 RESPIRATION EVEN AND UNLABORED. IV SALINE LOCK AT THE LEFT FOREARM G22, PATENT AND INTACT, WITH MIDLINE PICC LINE IN THE RIGHT UPPER ARM. AMBULATING TO THE BATHROOM, ON CLEAR LIQUID DIET. PLAN OF CARE FOR THE SHIFT DISCUSSED WITH PATIENT USING CASINO CAGE CASHIER FOR SILVIO CHRISTENSEN #[id number]. INSTRUCTED TO CALL NURSE WHENEVER NEEDING HELP. VERBALIZED UNDERSTANDING. DENIES PAIN 0/10.
--- NOTE | 2019-01-23 21:00 | NUR ---
Patient's Plan of Care was discussed and reviewed with RESEARCH INVESTIGATOR: WARREN HOWARD
--- NOTE | 2019-01-23 21:05 | NUR ---
INFORMED DR. MIRANDA, MAGNESIUM TODAY IS 1.7. STATED DON'T WORRY ABOUT IT.
--- NOTE | 2019-01-23 22:00 | NUR ---
SITTING IN BED, DENIES ABDOMINAL PAIN 0/10. STATED HE HAS TO LBM BUT SMALL AMOUNT, EXPLAINED HE IS STILL ON CLEAR LIQUID DIET.
[2019-01-24] VITALS: BP 144/68
--- NOTE | 2019-01-24 | NUR ---
SLEEPING COMFORTABLY IN BED.
--- NOTE | 2019-01-24 04:00 | NUR ---
AMBULATED TO BR TO VOID. GAIT STEADY.
--- NOTE | 2019-01-24 05:41 | NUR ---
IN BED, SLEEPING. BUT WOKE UP WHEN NURSE INQUIRED ABOUT HIS I & O, STATED HE HAD 1 SMALL LOOSE BM.
--- NOTE | 2019-01-24 06:34 | NUR ---
WARM BLANKET GIVEN. NO COMPLAINT OF PAIN DURING SHIFT. CONDITION REMAIN STABLE.
--- NOTE | 2019-01-24 07:08 | NUR ---
ENDORSED TO AM SHIFT NURSE DUDLEY FOR CONTINUITY OF CARE.
--- NOTE | 2019-01-24 07:09 | NUR ---
RECEIVED REPORT FROM PET HANDLER NURSE FOR CONTINUITY OF CARE. PT IN STABLE CONDITION. RESPIRATIONS EVEN AND UNLABORED. IV/PICC LINE INTACT AND PATENT. SAFETY MEASURES IN PLACE. BED IN LOW POSITION. CALL LIGHT AT BEDSIDE. WILL CONTINUE TO MONITOR.
[2019-01-24 07:23] LABS: EOSINOPHILS # (AUTO) 0.1 K/uL (0-0.4); EOSINOPHILS % (AUTO) 3.2 % (0.0-4.0); HEMATOCRIT 44.9 % (36-52); HEMOGLOBIN 14.9 g/dL (12.0-18.0); LYMPHOCYTES # (AUTO) 0.5 K/uL (2.0-11.5); LYMPHOCYTES % (AUTO) 14.8 % (20.5-51.1); MEAN CORPUSCULAR HEMOGLOBIN 31 pg (27-31); MEAN CORPUSCULAR HGB CONC 33 g/dL (33-37); MEAN CORPUSCULAR VOLUME 91.6 fL (80-94); MONOCYTES # (AUTO) 0.4 K/uL (0.8-1.0); NEUTROPHILS # (AUTO) 2.3 K/uL (1.8-7.7); PLATELET COUNT (AUTO) 187 K/uL (140-450); RED CELL DISTRIBUTION WIDTH 16.7 % (11.6-13.7); WHITE BLOOD COUNT (AUTO) 3.2 K/uL (4.8-10.8)
[2019-01-24 07:50] LABS: MAGNESIUM 1.7 mg/dL (1.8-2.4); PHOSPHORUS 2.7 mg/dL (2.5-4.9)
[2019-01-24 07:52] LABS: PROTHROMBIN TIME 13.8 secs (10.8-13.4)
[2019-01-24 07:55] LABS: ALBUMIN 2.5 g/dL (3.4-5.0); ASPARTATE AMINOTRANSFERASE 180 U/L (15-37); CARBON DIOXIDE 26.5 mmol/L (21-32); CHLORIDE 101 mmol/L (98-107); CREATININE 0.6 mg/dL (0.7-1.3); GLUCOSE 77 mg/dL (74-106); POTASSIUM 3.5 mmol/L (3.5-5.1); SODIUM SERUM 135 mmol/L (136-145); TOTAL BILIRUBIN 1.4 mg/dL (0.0-1.0); UREA NITROGEN, BLOOD 8 mg/dL (7-18)
[2019-01-24 08:00] VITALS: BP 126/63
[2019-01-24] MEDS: ENOXAPARIN 40 MG/0.4 ML SYR SUBQ SCH (09:00)
--- NOTE | 2019-01-24 09:00 | NUR ---
HELD LOVENOX DUE TO PENDING LIVER BIOPSY AT 1000 01/24/2019.
--- NOTE | 2019-01-24 09:50 | NUR ---
PT OFF UNIT FOR LIVER BIOPSY. PT IN STABLE CONDITION.
[2019-01-24] MEDS ORDERED: MAG SULF 2000 MG/WATER PREMIX 50 ML IV SCH (10:30)
[2019-01-24] MEDS: MORPHINE SULFATE 4 MG/ML SYR IVP PRN ×2 (10:49→13:55)
[2019-01-24 10:50] VITALS: BP 159/73
--- NOTE | 2019-01-24 10:50 | NUR ---
PT BACK ON UNIT AFTER LIVER BIOPSY. PT IN STABLE CONDITION.
--- NOTE | 2019-01-24 10:51 | NUR ---
USED DEPARTMENT OF SOCIOLOGY CHAIR MELY [id number]. PT IN PAIN MEDICATED WITH MORPHINE. PT INSTRUCTED TO LAY ON LEFT SIDE. PT VERBALIZED UNDERSTANDING. FAMILY AT BEDSIDE. WILL CONTINUE TO MONITOR.
[2019-01-24 11:20] VITALS: BP 135/66
[2019-01-24 11:40] VITALS: BP 136/66
[2019-01-24] MEDS ORDERED: ENOXAPARIN 60 MG/0.6 ML SYR SUBQ SCH (12:45)
--- NOTE | 2019-01-24 13:50 | NUR ---
JUDITH HERNANDEZ GIVE 4MG MORPHINE FOR PAIN NOW. DR. GRAFF MORPHINE 4MG GIVEN AT 2 HOURS PRIOR.
[2019-01-24] MEDS: ENOXAPARIN 60 MG/0.6 ML SYR SUBQ SCH (14:42)
[2019-01-24 16:00] VITALS: BP 134/68
[2019-01-24] MEDS: WARFARIN 5 MG TAB PO SCH (17:52)
--- NOTE | 2019-01-24 17:56 | NUR ---
PT LYING IN BED IN STABLE CONDITION. GAVE PT WATER AND STRAW. NO PAIN REPORTED AT THIS TIME. WILL CONTINUE TO MONITOR.
--- NOTE | 2019-01-24 19:26 | NUR ---
GAVE REPORT TO RETAIL SALES ASSISTANT NURSE RANCHO FOR CONTINUITY OF CARE. PT IN STABLE CONDITION.
--- NOTE | 2019-01-24 19:27 | NUR ---
Received endorsement from AM shift RN; patient is A/Ox3, able to make needs known, Guyanese speaking. and granddaughter at bedside; introduced self, updated board. No SOB or distress noted, on room air. IV sites on left wrist, 22 gauge and right upper arm PICC line; both saline locked. Bed in the lowest position, call light within reach. Initial assessment done. Will continue to monitor.
--- NOTE | 2019-01-24 21:05 | NUR ---
Rounds made; no distress noted.
--- NOTE | 2019-01-24 23:36 | NUR ---
Endorsed patient to PM shift RN Justin for continuity of care; patient in stable condition.
--- NOTE | 2019-01-24 23:37 | NUR ---
RECEIVED PT FROM SPECIAL DELIVERY MAIL CARRIER NURSEDAWNA. PT IN STABLE CONDITION. NO S/S SOB OR RESPIRATORY DISTRESS NOTED ON ROOM AIR. IV SITE ON LEFT WRIST, 22 GAUGE SL, RIGHT UPPER ARM PICC LINE, DOUBLE LUMENS, SL. PATENT, INTACT, ASYMPTOMATIC. INTRODUCED AND UPDATED BOARD. BED IN LOW POSITION. CALL LIGHT WITHIN REACH. WILL CONTINUE TO MONITOR.
[2019-01-25] VITALS: BP 137/68
[2019-01-25] MEDS: ENOXAPARIN 60 MG/0.6 ML SYR SUBQ SCH ×2 (02:29→14:01)
--- NOTE | 2019-01-25 02:29 | NUR ---
GIVEN LOVENOX DR. ORDERED. PT TOLERATED WELL.
--- NOTE | 2019-01-25 04:55 | NUR ---
PT SLEEPING. NO S/S OF DISCOMFORT.
--- NOTE | 2019-01-25 07:10 | NUR ---
RECEIVED BEDSIDE REPORT FROM ASSOCIATE FINANCIAL PLANNER NURSE. PT IS ASLEEP AT THIS TIME, NO S/S OF ANY ACUTE DISTRESS OR SOB NOTED. PT IS ON ROOM AIR, SKIN IS INTACT. DOUBLE LUMEN PICC LINE NOTED ON THE RUE, AND 22 G PIV NOTED ON THE L WRIST. PATENT AND INTACT. PT IS SALINE LOCK. PT IS AMBULATORY AND NOT A FALL RISK. CALL LIGHT IS WITHIN REACH. WILL CONTINUE TO MONITOR.
--- NOTE | 2019-01-25 07:25 | NUR ---
ENDORSED PT TO DAY SHIFT NURSE. PT IN STABLE CONDITION.
[2019-01-25 08:00] VITALS: BP 140/65
[2019-01-25 09:22] LABS: BASOPHILS % (AUTO) 1.1 % (0.0-2.0); EOSINOPHILS # (AUTO) 0.1 K/uL (0-0.4); EOSINOPHILS % (AUTO) 3.1 % (0.0-4.0); HEMATOCRIT 42.8 % (36-52); HEMOGLOBIN 14.3 g/dL (12.0-18.0); LYMPHOCYTES # (AUTO) 0.7 K/uL (2.0-11.5); LYMPHOCYTES % (AUTO) 20.5 % (20.5-51.1); MEAN CORPUSCULAR HEMOGLOBIN 30 pg (27-31); MEAN CORPUSCULAR HGB CONC 33 g/dL (33-37); MEAN CORPUSCULAR VOLUME 91.5 fL (80-94); MONOCYTES # (AUTO) 0.4 K/uL (0.8-1.0); NEUTROPHILS # (AUTO) 2.3 K/uL (1.8-7.7); NEUTROPHILS % (AUTO) 64.3 % (42.2-75.2); PLATELET COUNT (AUTO) 183 K/uL (140-450); RED BLOOD CELL COUNT(AUTO) 4.68 MIL/uL (4.20-6.10); RED CELL DISTRIBUTION WIDTH 17.1 % (11.6-13.7); WHITE BLOOD COUNT (AUTO) 3.5 K/uL (4.8-10.8)
[2019-01-25 09:26] LABS: MAGNESIUM 1.7 mg/dL (1.8-2.4); PHOSPHORUS 2.7 mg/dL (2.5-4.9)
[2019-01-25 09:36] LABS: ALBUMIN 2.3 g/dL (3.4-5.0); ANION GAP 9.8 (8-16); ASPARTATE AMINOTRANSFERASE 163 U/L (15-37); CHLORIDE 101 mmol/L (98-107); CREATININE 0.6 mg/dL (0.7-1.3); GLUCOSE 61 mg/dL (74-106); POTASSIUM 3.8 mmol/L (3.5-5.1); SODIUM SERUM 136 mmol/L (136-145); TOTAL BILIRUBIN 1.3 mg/dL (0.0-1.0); UREA NITROGEN, BLOOD 11 mg/dL (7-18)
[2019-01-25 09:45] LABS: PROTHROMBIN TIME 15.5 secs (10.8-13.4)
--- NOTE | 2019-01-25 14:00 | NUR ---
SPOKE WITH DIETITIAN, REGARDING PT'S CLEAR LIQUID DIET ONGOING FOR 5 DAYS NOW. PT HAS BEEN TOLERATING CLEAR LIQUID DIET WELL, BUT WOULD LIKE TO EAT SOMETHING MORE SOLID. PAGED DR DIAZ ABOUT POSSIBLY ADVANCING PT'S DIET, AND HE ORDERED PT TO BE PLACED ON MECHANICAL SOFT DIET. WILL MONITOR PT'S TOLERANCE TO MECHANICAL SOFT DIET.
--- NOTE | 2019-01-25 14:22 | NUR ---
01/25/19 RD FOLLOW UP COMPLETED PLEASE REFER TO NUTRITION PROGRESS NOTE UNDER CARE ACTIVITY FOR ESTIMATED NUTRITION NEEDS. RD RECOMMENDATION: 1. CONTINUE CLEAR LIQUID DIET MEDICALLY NECESSARY 2. CONSIDER ADVANCING DIET TO FULL LIQUID DIET AND THEN REGULAR DIET TOLERATED. 3. RECOMMEND ENSURE CLEAR BID TO OPTIMIZE NUTRITION INTAKE. 4. RD TO FOLLOW-UP 2-3 DAYS, HIGH RISK. SHIRLEY COLUNGA, RD
[2019-01-25 15:42] VITALS: BP 122/65
--- NOTE | 2019-01-25 16:37 | NUR ---
PT AWAKE IN BED, NO S/S OF ANY ACUTE DISTRESS OR SOB. NO C/O PAIN. CALL LIGHT IS WITHIN REACH. WILL CONTINUE TO MONITOR.
[2019-01-25] MEDS: WARFARIN 5 MG TAB PO SCH (16:47)
--- NOTE | 2019-01-25 16:52 | NUR ---
SCHEDULED COUMADIN ADMINISTERED, PT TOLERATED WELL. PT'S RELATIVE VISITING AT BEDSIDE.
--- NOTE | 2019-01-25 18:26 | NUR ---
PT EATING DINNER AT THIS TIME, FAMILY MEMBER VISITING AT BEDSIDE. PT TOLERATING MECHANICAL SOFT DIET WELL.
--- NOTE | 2019-01-25 19:20 | NUR ---
PT ENDORSED TO FLARE STITCHER NURSE IN STABLE CONDITION.
--- NOTE | 2019-01-25 19:21 | NUR ---
RECEIVED REPORT FROM AM NURSE. NO DSITRESS NOTED. PATIENT SITTING IN BED TALKING ON THE PHONE. FAMILY MEMBERS AT BEDSIDE. AAOX4, CALM, COOPERATIVE, SKIN COLOR APPROPRIATE TO ETHNICITY, WARM TO TOUCH. SKIN INTACT. RIGHT UPPER ARM PICC LINE NOTED, DRESSING DRY AND INTACT. LEFT FOREARM IV SITE INFILTRATED UPON FLUSHING, IV SITE REMOVED WITH MINIMAL BLOOD AND LUMEN COMPLETELY INTACT AT THIS TIME. PATIENT TOLERATED WELL. ABLE TO AMBULATE WITH STEADY GAIT TO BATHROOM AND BACK TO BED. ABDOMEN SOFT, NON-DISTENDED. REVIEWED PLAN OF CARE WITH PATIENT. PATIENT VERBALIZED UNDERSTANDING. SAFETY MEASURES IN PLACE, CALL LIGHT WITHIN REACH. WILL CONTINUE TO MONITOR.
--- NOTE | 2019-01-25 20:52 | NUR ---
PATIENT SITTING IN BED TALKING WITH FAMILY MEMBERS AT BEDSIDE. NO DISTRESS NOTED. CONDITION UNCHANGED. WILL CONTINUE TO MONITOR.
--- NOTE | 2019-01-25 22:30 | NUR ---
PATIENT LYING DOWN IN BED. NO DISTRESS NOTED. DENIES ANY PAIN. CONDITION UNCHANGED. WILL CONTINUE TO MONITOR.
[2019-01-26] VITALS: BP 127/76
[2019-01-26] MEDS: ENOXAPARIN 60 MG/0.6 ML SYR SUBQ SCH (02:30)
--- NOTE | 2019-01-26 02:38 | NUR ---
PATIENT LYING DOWN IN BED SLEEPING, AROUSABLE BY VOICE. NO DISTRESS NOTED. DENIES ANY PAIN. SCHEDULED MEDICATIONS DUE GIVEN. WILL CONTINUE TO MONITOR.
[2019-01-26 04:00] VITALS: BP 133/75
--- NOTE | 2019-01-26 05:30 | NUR ---
PATIENT LYING DOWN IN BED SLEEPING, AROUSABLE BY VOICE. NO DISTRESS NOTED. CONDITION UNCHANGED. WILL CONTINUE TO MONITOR.
--- NOTE | 2019-01-26 07:10 | NUR ---
RECEIVED BEDSIDE REPORT FROM SUPERVISOR MAINTENANCE NURSE. PT IS AWAKE, NO S/S OF ANY ACUTE DISTRESS OR SOB NOTED. PT IS ON ROOM AIR, SKIN IS INTACT. DOUBLE LUMEN PICC LINE NOTED ON THE RUE, PATENT AND INTACT. PT IS SALINE LOCK. PT IS AMBULATORY AND NOT A FALL RISK. CALL LIGHT IS WITHIN REACH. WILL CONTINUE TO MONITOR.
[2019-01-26 07:30] LABS: BASOPHILS # (AUTO) 0.1 K/uL (0.00-0.22); BASOPHILS % (AUTO) 1.6 % (0.0-2.0); EOSINOPHILS % (AUTO) 1.4 % (0.0-4.0); HEMATOCRIT 42.9 % (36-52); HEMOGLOBIN 14.3 g/dL (12.0-18.0); LYMPHOCYTES # (AUTO) 0.8 K/uL (2.0-11.5); LYMPHOCYTES % (AUTO) 21.9 % (20.5-51.1); MEAN CORPUSCULAR HEMOGLOBIN 31 pg (27-31); MEAN CORPUSCULAR HGB CONC 33 g/dL (33-37); MEAN CORPUSCULAR VOLUME 91.9 fL (80-94); MONOCYTES # (AUTO) 0.3 K/uL (0.8-1.0); MONOCYTES % (AUTO) 8.2 % (1.7-9.3); NEUTROPHILS # (AUTO) 2.4 K/uL (1.8-7.7); NEUTROPHILS % (AUTO) 66.9 % (42.2-75.2); PLATELET COUNT (AUTO) 176 K/uL (140-450); RED BLOOD CELL COUNT(AUTO) 4.67 MIL/uL (4.20-6.10); RED CELL DISTRIBUTION WIDTH 17.2 % (11.6-13.7); WHITE BLOOD COUNT (AUTO) 3.5 K/uL (4.8-10.8)
--- NOTE | 2019-01-26 07:30 | NUR ---
GAVE REPORT TO AM NURSE FOR CONTINUITY OF CARE. PATIENT IN STABLE CONDITION.
[2019-01-26 08:00] VITALS: BP 123/62
[2019-01-26 08:35] LABS: ALBUMIN 2.2 g/dL (3.4-5.0); ANION GAP 11.4 (8-16); ASPARTATE AMINOTRANSFERASE 161 U/L (15-37); CARBON DIOXIDE 26.1 mmol/L (21-32); CHLORIDE 98 mmol/L (98-107); CREATININE 0.6 mg/dL (0.7-1.3); GLUCOSE 66 mg/dL (74-106); POTASSIUM 3.5 mmol/L (3.5-5.1); SODIUM SERUM 132 mmol/L (136-145); TOTAL BILIRUBIN 1.5 mg/dL (0.0-1.0); UREA NITROGEN, BLOOD 9 mg/dL (7-18)
[2019-01-26 08:45] LABS: MAGNESIUM 1.6 mg/dL (1.8-2.4); PHOSPHORUS 2.5 mg/dL (2.5-4.9)
--- NOTE | 2019-01-26 10:04 | NUR ---
PT SEEN BY DR DIAZ. DR DIAZ NOTIFIED OF PT'S MAGNESIUM 1.6
--- NOTE | 2019-01-26 13:25 | NUR ---
PT HAS DC'D. PT AND HIS RELATIVE WERE GIVEN DC INSTRUCTIONS, THEY VERBALIZED UNDERSTANDING. HIS RELATIVE WAS ABLE TO TRANSLATE INSTRUCTIONS FROM BRAZILIAN TO SCOTTISH. PICC LINE WAS REMOVED, WRIST BAND TAKEN OFF. PT LEFT WITH ALL HIS BELONGINGS IN STABLE CONDITION.
[2019-01-26] MEDS ORDERED: WARFARIN 5 MG TAB PO SCH (17:00)
== END 2019-01-26 13:25 | disposition home or self-care (01) ==
LOC: MED 18:28 → MTU 22:01 → OBSVTOIN 01-21 13:31
PROVIDERS: ADMIT Internal Medicine Pulmonary Disease; ATTEND Internal Medicine Pulmonary Disease
PROC: 0FB23ZX Excision of Left Lobe Liver, Percutaneous Approach, Diagnostic (ICD-10-PCS; principal; 2019-01-24)
DX: R16.0 Hepatomegaly, not elsewhere classified (principal); I81 Portal vein thrombosis; K76.6 Portal hypertension; E44.0 Moderate protein-calorie malnutrition; F03.90 Unspecified dementia, unspecified severity, without behavioral disturbance, psychotic disturbance, mood disturbance, and anxiety; I10 Essential (primary) hypertension; N40.0 Benign prostatic hyperplasia without lower urinary tract symptoms; E78.5 Hyperlipidemia, unspecified; K21.9 Gastro-esophageal reflux disease without esophagitis; Z95.0 Presence of cardiac pacemaker; R62.7 Adult failure to thrive; Z68.20 Body mass index [BMI] 20.0-20.9, adult; B18.1 Chronic viral hepatitis B without delta-agent
CPT/HCPCS: 96374; 99285; G0378; 36415; 47000; 76700; 80053; 81003; 82105; 83605; 83690; 83735; 84100; 85025; 85610; 85730; 87040; 87081; 88305; 88313; 88342; C1751; J0696; J1650; J1885; J2270; J3475; J7030; J7060; Q0092; Q9967

== ENCOUNTER 2019-03-10 12:19 | Emergency (ER) | payer OTHER ==
[~2019-03-10] VITALS: Ht 167.6 cm; Wt 54.5 kg
[~2019-03-10 12:19] MED LIST changes: +ASPI-1718 PO; +DOCU-299 PO; +DONE10TA10 PO; +LORA-476 PO; +MECL-272 PO; +NAPR-54 PO; +RANI150T8 PO; +SIMV10TA1 PO; +TAMS0.4C96 PO; +TRAZ-343 PO
[2019-03-10 12:22] VITALS: BP 127/90
--- NOTE | 2019-03-10 12:43 | NUR ---
Dr. Penaloza evaluating patient at bedside.
[2019-03-10 13:07] LABS: BASOPHILS # (AUTO) 0.2 K/uL (0.00-0.22); BASOPHILS % (AUTO) 4.8 % (0.0-2.0); EOSINOPHILS % (AUTO) 0.6 % (0.0-4.0); HEMATOCRIT 42.3 % (36-52); LYMPHOCYTES # (AUTO) 0.3 K/uL (2.0-11.5); LYMPHOCYTES % (AUTO) 9.7 % (20.5-51.1); MEAN CORPUSCULAR HEMOGLOBIN 31 pg (27-31); MEAN CORPUSCULAR HGB CONC 33 g/dL (33-37); MEAN CORPUSCULAR VOLUME 93.5 fL (80-94); MONOCYTES # (AUTO) 0.4 K/uL (0.8-1.0); NEUTROPHILS # (AUTO) 2.6 K/uL (1.8-7.7); NEUTROPHILS % (AUTO) 73.9 % (42.2-75.2); PLATELET COUNT (AUTO) 212 K/uL (140-450); RED BLOOD CELL COUNT(AUTO) 4.52 MIL/uL (4.20-6.10); RED CELL DISTRIBUTION WIDTH 22.9 % (11.6-13.7); WHITE BLOOD COUNT (AUTO) 3.5 K/uL (4.8-10.8)
--- NOTE | 2019-03-10 13:21 | NUR ---
PT GOING TO CT AT THIS TIME
[2019-03-10 13:22] LABS: PROTHROMBIN TIME 15.3 secs (10.8-13.4)
[2019-03-10 13:30] LABS: BILIRUBIN,URINE 1+ (NEGATIVE); BLOOD, URINE NEGATIVE (NEGATIVE); COLOR,URINE ORANGE (YELLOW); LEUKOCYTE ESTERASE ,URINE NEGATIVE (NEGATIVE); NITRITE, URINE POSITIVE (NEGATIVE); PH,URINE 5.5 (5.0-9.0); UGLUCOSE NEGATIVE (NEGATIVE)
[2019-03-10 13:33] LABS: APPEARANCE,URINE SLIGHTLY HAZY (CLEAR); RBC,URINE 0-5 /HPF (0-5)
[2019-03-10 13:33] LABS: BILIRUBIN,DIRECT 1.6 mg/dL (0.0-0.3); THYROID STIMULATING HORMONE 4.01 uIU/mL (0.34-3.74); TOTAL BILIRUBIN 3.3 mg/dL (0.0-1.0)
[2019-03-10 13:34] LABS: WBC,URINE 0-5 /HPF (0-5)
[2019-03-10 13:35] LABS: CALCIUM OXALATE CRYSTALS,UR 0-10 /HPF (None Seen)
[2019-03-10 13:38] LABS: POTASSIUM 3.6 mmol/L (3.5-5.1); SODIUM SERUM 137 mmol/L (136-145)
[2019-03-10 13:39] LABS: ANION GAP 10.7 (8-16); ASPARTATE AMINOTRANSFERASE 193 U/L (15-37); CARBON DIOXIDE 28.9 mmol/L (21-32); CHLORIDE 101 mmol/L (98-107); CREATININE 0.7 mg/dL (0.7-1.3); GLUCOSE 175 mg/dL (74-106); TOTAL BILIRUBIN 3.4 mg/dL (0.0-1.0); UREA NITROGEN, BLOOD 12 mg/dL (7-18)
[2019-03-10 13:40] LABS: ALBUMIN 2.2 g/dL (3.4-5.0)
[2019-03-10] MEDS ORDERED: ASPIRIN 81 MG TAB.CHEW PO ONE (14:15)
[2019-03-10] MEDS ORDERED: FUROSEMIDE 40 MG/4 ML VIAL IVP ONE (14:15)
--- NOTE | 2019-03-10 14:16 | NUR ---
PT LYING ON BED, NO ACUTE DITRESS. WATER OFFERED PER PT'S REQUEST. PT IS QUIETLY WAITING FOR TEST RESULTS. FAMILY BEDSIDE WITH PT.
--- NOTE | 2019-03-10 15:11 | NUR ---
PT WAS MEDICATED ASA AND LASIX PER MD ORDER.
--- NOTE | 2019-03-10 15:47 | NUR ---
Patient discharged with v/s stable. Written and verbal after care instructions given and explained. Patient alert, oriented and verbalized understanding of instructions. Ambulatory with steady gait. All questions addressed prior to discharge. ID band removed. Patient advised to follow up with PMD. Rx of LASIX AND ASA given. Patient educated on indication of medication including possible reaction and side effects. Opportunity to ask questions provided and answered.
[2019-03-10 15:48] VITALS: BP 124/75
== END 2019-03-10 15:47 | disposition home or self-care (01) ==
LOC: MED 12:19
DX: R18.8 Other ascites (principal); R60.0 Localized edema; R79.1 Abnormal coagulation profile; F03.90 Unspecified dementia, unspecified severity, without behavioral disturbance, psychotic disturbance, mood disturbance, and anxiety; K21.9 Gastro-esophageal reflux disease without esophagitis; E78.5 Hyperlipidemia, unspecified; C22.8 Malignant neoplasm of liver, primary, unspecified as to type; Z95.0 Presence of cardiac pacemaker; Z79.82 Long term (current) use of aspirin; Z79.899 Other long term (current) drug therapy
CPT/HCPCS: 36415; 71045; 74176; 80053; 81001; 82140; 82247; 82248; 83690; 83880; 84443; 84484; 85025; 85610; 85730; 87086; 93005; 96374; 99284; J1940; Q0092